=== PATIENT | female | born 1955 | race Caucasian/White ===

== ENCOUNTER 2019-06-27 16:05 | Inpatient (IN) ==
[~2019-06-27 16:05] MED LIST: TICAGRELOR 90 MG TAB PO SCH
[2019-06-27 16:48] LABS: Basophils # (auto) 0.02 K/uL (0-0.2); Basophils % (auto) 0.4 %; Eosinophils # (auto) 0.01 K/uL (0-0.5); Eosinophils % (auto) 0.2 %; Hemoglobin 12.5 g/dL (12.0-16.0); Immature Granulocytes # (auto) 0.01 K/uL (0.00-0.02); Immature Granulocytes % (auto) 0.2 %; Lymphocytes # (auto) 2.71 K/uL (1.2-3.4); Lymphocytes % (auto) 49.2 %; Mean Corpuscular Hgb Conc 32.9 g/dL (32-36); Mean Corpuscular Volume 91.1 fL (80-100); Mean Platelet Volume 9.6 fL (7.4-10.4); Monocytes # (auto) 0.77 K/uL (0.11-0.59); Neutrophils # (auto) 1.99 K/uL (1.4-6.5); Platelet Count 235 K/uL (130-400); RDW Coefficient of Variation 13.5 % (11.5-14.5); RDW Standard Deviation 44.3 fL (36.4-46.3); Red Blood Count 4.17 M/uL (4.2-5.4); White Blood Count 5.51 K/uL (4.8-10.8)
[2019-06-27 16:56] LABS: Albumin Level 3.4 gm/dl (3.4-5.0); BUN Creatinine Ratio 12.5 (10-20); Calcium 9.4 mg/dl (8.5-10.1); Creatinine Clr Calc Pharmacy 84.2 ml/min; Potassium 3.9 mmol/L (3.5-5.1)
[2019-06-27] MEDS ORDERED: ASPIRIN CHEW 324 MG PO STA (17:05)
[2019-06-27 17:06] LABS: Bilirubin,Total 0.1 mg/dl (0.2-1); Creatine Kinase MB 1.4 ng/ml (0.5-3.6); Globulin 3.3 gm/dl (2.5-4.0); Total Protein 6.7 gm/dl (6.4-8.2); Troponin I 0.652 ng/ml (0-0.045)
[2019-06-27] MEDS ORDERED: SODIUM CHLORIDE 0.9% 1000ML 1,000 ML IV ONE (17:06)
[2019-06-27] MEDS ORDERED: NITROGLYCERIN SL 0.4 MG/TAB TAB ONE (17:07)
[2019-06-27] MEDS ORDERED: ASPIRIN CHEW 324 MG ONE (17:07)
[2019-06-27] MEDS: NITROGLYCERIN SL 0.4 MG/TAB TAB SL PRN ×2 (17:09→17:39)
[2019-06-27] MEDS ORDERED: Heparin BOLUS **ED Use Only IV STA (17:15)
[2019-06-27] MEDS ORDERED: Heparin Adult LOW DOSE Wt-Based Dextrose 5% 25,000 units/500 mL IV SCH (17:15)
[2019-06-27] MEDS ORDERED: HEPARIN SODIUM/DEXTROSE 25,000 UNITS/500 ML BAG IV SCH (17:15)
[2019-06-27] MEDS ORDERED: Heparin IV Low Dose WITH Bolus IV ONE (17:15)
--- NOTE | 2019-06-27 17:28 | XRay Report ---
XR chest 1V portable HISTORY: Atypical Chest pain COMPARISON: Chest 09/04/2018. FINDINGS: No pneumothorax. No pleural effusions. The cardiac silhouette is mildly enlarged. No focal lung consolidations to suggest pneumonia. No evidence for pulmonary edema. IMPRESSION: Mild cardiomegaly. Electronically signed by: Florin Ortega M.D. 06/27/2019 5:27 PM
[2019-06-27] MEDS ORDERED: fentaNYL citrate 100 MCG/2 ML VIAL ONE ×2 (17:31→18:50)
[2019-06-27] MEDS ORDERED: HEPARIN (PORCINE) 1000 UNIT/ML 10 ML (CATH LAB USE ONLY) ONE (17:31)
[2019-06-27] MEDS ORDERED: NiCARDipine HCL INJ 2.5 MG/ML 10 ML AMP ONE (17:31)
[2019-06-27] MEDS ORDERED: MIDAZOLAM HCL 1 MG/ML 2ML VIAL ONE ×3 (17:32→18:50)
[2019-06-27] MEDS ORDERED: NITROGLYCERIN/D5W 100MCG/ML 20ML SYR ONE (17:32)
[2019-06-27] MEDS ORDERED: TICAGRELOR 90 MG TAB PO ONE (17:33)
[2019-06-27 18:08] LABS: Albumin Level 3.5 gm/dl (3.4-5.0); BUN Creatinine Ratio 14.2 (10-20); Calcium 9.3 mg/dl (8.5-10.1); Creatinine Clr Calc Pharmacy 88.5 ml/min; Est GFR (African American) 92.3; Est GFR (Non-African American) 79.7; Magnesium 1.9 mg/dl (1.8-2.4); Potassium 4.1 mmol/L (3.5-5.1); Prothrombin Time 9.8 Seconds (9.0-12.0)
[2019-06-27] MEDS ORDERED: ATROPINE SULFATE 0.1 MG/ML 10ML SYR IV ONE (18:10)
[2019-06-27 18:19] LABS: Albumin Globulin Ratio 1.2 (0.9-2); Bilirubin,Total 0.1 mg/dl (0.2-1); Globulin 2.8 gm/dl (2.5-4.0); Thyroid Stimulating Hormone 0.788 uIu/ml (0.300-4.500); Total Protein 6.4 gm/dl (6.4-8.2)
[2019-06-27] MEDS ORDERED: HydrALAZINE HCL 20 MG/ML VIAL ONE ×3 (18:20→19:02)
[2019-06-27] MEDS ORDERED: ONDANSETRON INJ 2 MG/ML 2 ML VIAL ONE (18:40)
[2019-06-27] MEDS ORDERED: EPTIFIBATIDE 2 MG/ML 10 ML VIAL (CATH LAB USE ONLY) ONE (18:47)
--- NOTE | 2019-06-27 19:20 | Cardiology Consultation ---
Date of Consultation June 27, 2019 Assessment & Plan (1) Acute UT: Presentation consistent with acute UT and recommend proceeding with emergent cardiac catheterization and likely primary PCI. No apparent contraindications to procedure. Discussed risks, benefits, alternatives of procedure with patient and they are willing to proceed. Given ticagrelor 180 mg in the ED. Further recommendations pending findings of coronary angiography. History of Present Illness Attending Physician: Jordan Sutherland MD History of Present Illness 63-year-old woman here with acute chest pain and ECG concerning for acute UT. Patient seen emergently in the ED after heart alert activated after second EKG. No prior cardiac history. Cardiac risk factors include obesity, hypertension, dyslipidemia. Other medical issues include GERD, spinal stenosis and osteoarthritis. Chest pain began evening prior to presentation while on a fishing trip in [place]. Initially thought pain was secondary to her GERD but persisted and eventually decided she should drive home. Today he has had pain consistently throughout the day associated with numbness in her left arm and shortness of breath. Pain at its worse this afternoon 6 out of 10. In ED hypertensive and ongoing chest pain, 5 out of 10. Hemodynamically stable and given 1 sibling with nitroglycerin. Initial EKG showed sinus rhythm with subtle ST changes. Troponin positive at 0.65. subsequent EKG almost an hour later showed borderline inferior ST elevations and heart alert activated. Allergies Allergy/AdvReac Type Severity Reaction Status Date / Time shrimp Allergy Intermediate fever,n/v,s Verified 09/18/18 11:59 weating Home Medications Home Medications Medication Instructions Recorded Confirmed Type citalopram 20 mg PO QAM 09/01/18 09/18/18 History levocetirizine [Xyzal] 5 mg PO HS PRN 09/01/18 09/18/18 History lisinopril 20 mg PO QAM 09/01/18 09/18/18 History multivitamin 1 tab PO QAM 09/01/18 09/18/18 History pantoprazole 40 mg PO QAM 09/01/18 09/18/18 History oxycodone 5 mg PO Q4H PRN #30 tab 09/20/18 Rx tramadol 50 mg PO Q4H PRN #30 tab 09/20/18 Rx aspirin [Ecotrin Low Strength] 81 mg PO QAM 30 Days #30 tab 06/28/19 Rx metoprolol tartrate 25 mg PO BID 30 Days #60 tab 06/28/19 Rx nitroglycerin [Nitrostat] 0.4 mg SUBLINGUAL PRN PRN #30 tab 06/28/19 Rx ticagrelor [Brilinta] 90 mg PO BID 30 Days #60 tab 06/28/19 Rx atorvastatin 80 mg PO DAILY #30 tab 06/29/19 Rx Patient History Medical History Morbid obesity (Chronic) HLD (hyperlipidemia) (Chronic) Hypertension (Chronic) GERD (gastroesophageal reflux disease) (Chronic) Osteoarthritis (Chronic) Degenerative disc disease (Chronic) Surgical History History of tonsillectomy (Chronic) History of colonoscopy (Chronic) History of back surgery (Chronic) Lumbar discectomy 09/18/18 Lumbar decompression and fusion at [facility] by Dr Burnham History of total knee replacement (Chronic) RT History of hysterectomy (Chronic) History of arthroscopy (Chronic) left KNEE Family History Father Family history of diabetes mellitus Social History Preferred Language: Mosotho Communication Ability: Effective 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 25 pack year hx ; Second Hand Exposure: No ; Hx Alcohol Use: No Hx Substance Use: No Review of Systems Review of Systems: Not obtained in the setting of emergent situation Physical Exam Physical Exam: General: Uncomfortable, no acute distress, obese HEENT: Sclerae anicteric, mucous membranes moist Lungs: Clear to auscultation bilaterally, no rhonchi or wheezes Cardiac: Regular rate and rhythm, no murmurs. Abdomen: Soft, nontender Extremities: Warm, well perfused, no edema. 2+ radial pulses Skin: No rashes or lesions. Neuro: Nonfocal Psych: Alert orient x3, normal affect and mood Results & Data Vital Signs (Past 12 Hours) Vital Signs Temp Pulse Resp BP Pulse Ox 06/27/19 17:40 59 L 20 201/110 H 95 06/27/19 17:30 59 L 20 201/110 H 95 06/27/19 17:17 62 22 183/86 H 94 06/27/19 17:13 65 18 172/107 H 94 06/27/19 17:00 59 L 20 95 06/27/19 16:09 98.1 F 66 18 160/103 H 98 PG Care Time/CCT Total # of Minutes Spent Total Time Spent with Patient: Total time spent is greater than 50% in coordination of care (as documented) at patient's floor/unit and/or counseling patient:
--- NOTE | 2019-06-27 19:21 | Pre Anesthesia Assessment ---
Date of Service June 27, 2019 Pre Sedation Assessment Vital Signs Temp Pulse Resp BP Pulse Ox 06/27/19 17:40 59 L 20 201/110 H 95 06/27/19 17:30 59 L 20 201/110 H 95 06/27/19 17:17 62 22 183/86 H 94 06/27/19 17:13 65 18 172/107 H 94 06/27/19 17:00 59 L 20 95 06/27/19 16:09 98.1 F 66 18 160/103 H 98 Cardiovascular RRR, no murmur, no edema Respiratory normal respiratory effort, lungs clear to auscultation Pre-Sedation Airway Assessment Smoking Status: Former smoker Hx Sleep Apnea: No Hx Difficult Intubation: No Short, Thick Neck: No Thyromental Distance: > or= 3.5 Finger Breadths Oral Cavity: + WNL Mallampati Class: III Procedure Planning Contraindications for Sedation: none Current Medications Reviewed: Yes Notes The planned sedation has been discussed with the patient. Informed Consent was obtained. I have identified the patient, determined the appropriateness of sedation and have assessed the patient immediately prior to the procedure. All medicine(s) and interventions are by my order.
--- NOTE | 2019-06-27 19:21 | Post Anesthesia Assessment ---
Date of Service June 27, 2019 Post Sedation Assessment Vital Signs Temp Pulse Resp BP Pulse Ox 06/27/19 17:40 59 L 20 201/110 H 95 06/27/19 17:30 59 L 20 201/110 H 95 06/27/19 17:17 62 22 183/86 H 94 06/27/19 17:13 65 18 172/107 H 94 06/27/19 17:00 59 L 20 95 06/27/19 16:09 98.1 F 66 18 160/103 H 98 Recovery Score Activity: Moves 4 extremities Respiration: Deep Breath/Cough Circulation: +/-20% PreAnes Value Consciousness: Fully Awake Oxygen Saturation: O2 needed for >90% Discharge Sedation Level of Care: Fast Track Phase II Post Sedation Plan On clinical assessment, the patient appears to have tolerated the sedation without complications. Patient is recovering as anticipated. Patient will continue to be monitored by nursing and may be discharged when sedation discharge criteria are met per below protocol. Upon Completions of procedure and additional 15 minutes continue every 5 minute vital signs and the P.A.R. score; then discharge to a Phase I or Fast Track to Phase II per the following guidelines: * Discharge Patient to appropriate Phase II area if PAR is 8 or greater or return to pre- procedure baseline. The post - procedure orders will be as di rected. * If PAR score is less than 8 or not return to pre-procedure baseline then patient will follow Phase I monitoring till PAR is reached for Phase II. The Phase I may be done in procedure room or may call to secure a Phase I area. * If naloxone or flumazenil are used for reversal, hold in Phase I for continued monitoring from when last reversal dose was given for a minimum of 60 minutes or longer pending the nurse and/or physician discretion of patient condition before discharge to Phase II. Please call the Sedation Physician to re-evaluate and complete post-note for discharge to Phase II area. Do NOT discharge from procedure sedation or Phase 1 until post- sedation evaluation note is complete by procedure /sedation MD Sedation Discharge Instructions to be given to the patient at discharge to home.
--- NOTE | 2019-06-27 19:37 | Cardiac Catheterization ---
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 Cardiac Status Clinical evaluation leading to the procedure CAD Presenation: STEMI Anginal Classification: CCS IV Heart Failure: No Cardiogenic Shock within 24 Hours: No Cardiac Arrest within 24 Hours: No Imaging Studies Past 6 Months: No Stress Studies Past 6 Months: No Diagnostic Physicians Name: Jordan Sutherland MD Status: Elective Closure Device Percutaneous Entry Location: Radial Closure Device: Radial Band Recommendations: PCI without planned CABG PCI Indication: PCI for STEMI - Stable First Noted: Subsequent EKG Lesion Segment Name: PDA Culprit Artery: Yes Stenosis Prior to Rx (%): 100 Chronic Total Occlusion: No IVUS: No FFR: No Pre-Procedure ADAM Flow: 0 Previously Treated Lesion: No Lesion Complexity: High/C Lesion Length (mm): 20 Thrombus Present: Yes Bifurcation Lesion: Yes Guidewire Across Lesion: Stenosis Post-Procedure (%): 0 Post-Procedure ADAM Flow: 3 Devices(s) Deployed: Yes Yes Intraprocedure Events Significant Disection: No Perforation: No Cardiac Cath Procedure Full Procedure Date June 27, 2019 Pre-Procedure Diagnosis Pre-Procedure Diagnosis: STEMI AUC Score AUC Score: 9 Post-Procedure Diagnosis Post-Procedure Diagnosis: Severe CAD and Successful PCI Procedure(s) Performed Procedure(s) Performed: Coronary Angiography, Left Heart Cath and Drug Eluting Stent Pumper Gauger Jordan Sutherland MD Php Mysql Web Developer(s) Antolin Estimated Blood Loss Estimated Blood Loss: 15 Medication(s) Medication(s): Clopidogrel, Fentanyl, Heparin, Lidocaine 1%, Nicardipine, Nitroglycerin and Versed Summary of Findings Indication: Acute RI Access: 6 Fr right radial artery Catheters: Russell, JR4 guide Findings: LM -Short, moderate caliber LAD -moderate caliber vessel, proximal luminal irregularities, 20 to 30% mid segment disease, distal luminal irregularities. Moderate caliber bifurcating second diagonal without significant disease. LAD provides left to right collaterals to right PDA. Circumflex -small caliber vessel, 60 to 70% distal disease prior to small left OM 2 RCA -large caliber vessel, dominant, proximal luminal irregularities, 30% mid segment disease. 100% acute on chronic ostial right PDA. Large right PLB with luminal irregularities LVEDP -27 -- PCI -- Antithrombotic therapy: Heparin, ticagrelor, IC Integrilin Procedure: RCA cannulated with JR4 guide Multiple attempts to cross ostial PDA occlusion. Occlusion hard, consistent with organized clot. Unable to cross with towing pilot 50, cougar. Eventually able to cross with Long whisper wire with the aid of 2.0 OTW balloon. Contrast injection through OTW balloon confirmed intraluminal position. Ostial RCA lesion predilated with 2.0 compliant balloon Dilated lesion stented with 2.5 x 22 mm Sandy drug-eluting stent Stent post-dilated with stent balloon IC vasodilators administered for spasm, slow distal reflow. Gentle inflation with 2.0 balloon to distal PDA and IC Integrilin administered. Post procedure ADAM 3 flow, stent well expanded with minimal residual stenosis and no apparent cardiac complications. Arterial Closure: TR band Summary: 1. Acute on chronic 100% ostial PDA occlusion with [id number] collaterals from LAD 2. Moderate to severe single-vessel non-culprit coronary artery disease -60 to 70% stenosis in distal small circumflex 3. Elevated intracardiac filling pressure 4. Successful PCI of ostial RCA with single drug-eluting stent (2.5 x 22 mm Emiliano). Recommendations: To PCU for continued monitoring Trend troponin until peak, echocardiogram in a.m. Improved blood pressure control, titrate beta-brandin, NIKITA inhibitor Continue dual-antiplatelet therapy for at least one year Continue statin, and ASCVD risk factor modification Consult cardiac Rehab Hemodynamics Rest Ao:: 177/107/134 Final Ao: 216/72/160 LV: 172/27 Recommendations Recommendations: PCI without planned CABG Specimens Specimens: None Radiation Exposure (mGy) 4882 Contrast (mls) 175 Fluids (cc crystalloids) Fluids (cc crystalloids): 133 Drains Drains: None Anesthesia Moderate Procedural Complication(s) None Disposition PCU I attest to the content of the Intraoperative Record and any orders documented therein. Any exceptions are noted below.
[2019-06-27] MEDS ORDERED: ACETAMINOPHEN 325 MG TAB PO PRN (19:42)
[2019-06-27] MEDS ORDERED: ONDANSETRON INJ 2 MG/ML 2 ML VIAL IV PRN (19:42)
[2019-06-27] MEDS ORDERED: SODIUM CHLORIDE 0.9% 1000ML 1,000 ML IV SCH (19:45)
[2019-06-27] MEDS ORDERED: INFLUENZA ADMINISTRATION CHARGE ONE (20:30)
[2019-06-27] MEDS ORDERED: INFLUENZA VIRUS QUAD VACCINE 0.5 ML SYR IM ONE (20:30)
--- NOTE | 2019-06-27 20:33 | History & Physical Report ---
Date of Service June 27, 2019 Assessment & Plan (1) ST elevation myocardial infarction (STEMI): Multivessel CAD on cardiac cath sp PCI hypertension, stable hyperlipidemia on statin Rx GERD on PPI regimen ongoing tobacco abuse, patient resolved to quit once and for all PCU Management of cardiac issues as per bleach analyst. DVT prophylaxis with Lovenox subcu Full code History of Present Illness Primary Care Provider: Marleen Parker PA-C History obtained from patient and records. Medical history significant for hypertension, hyperlipidemia, GERD, ongoing t obacco abuse, skin cancer as per records. Recent confinement September 2018 under Orthopedics service for lumbar decompression surgery. 1 week history of intermittent chest discomfort reflux-like with occasional radiation to the left arm shortness of breath. Patient seen at PCP's office. Augmentin prescription given for frontal sinusitis. Home PPI doubled in dose. Overnight she had worsening and more persistent chest discomfort symptoms. At the ER, Heart alert called. Subsequent PCI of postural RCA lesion with SHERMAN done at the cathode builder. Patient currently at MICU room complaining of post cath right wrist pain. Medical History as above Surgical History : By C, hysterectomy, back surgery, oophorectomy Family History : Diabetes, heart disease, hypertension Personal/Social history : Half pack daily, occasional EtOH intake, retired from [employer] work Allergies Allergy/AdvReac Type Severity Reaction Status Date / Time shrimp Allergy Intermediate fever,n/v,s Verified 09/18/18 11:59 weating Home Medications Home Medications Medication Instructions Recorded Confirmed Type citalopram 20 mg PO QAM 09/01/18 09/18/18 History levocetirizine [Xyzal] 5 mg PO HS PRN 09/01/18 09/18/18 History lisinopril 20 mg PO QAM 09/01/18 09/18/18 History multivitamin 1 tab PO QAM 09/01/18 09/18/18 History pantoprazole 40 mg PO QAM 09/01/18 09/18/18 History oxycodone 5 mg PO Q4H PRN #30 tab 09/20/18 Rx tramadol 50 mg PO Q4H PRN #30 tab 09/20/18 Rx Past Med/Surg History Medical History Morbid obesity (Chronic) HLD (hyperlipidemia) (Chronic) Hypertension (Chronic) GERD (gastroesophageal reflux disease) (Chronic) Osteoarthritis (Chronic) Degenerative disc disease (Chronic) Surgical History History of tonsillectomy (Chronic) History of colonoscopy (Chronic) History of back surgery (Chronic) Lumbar discectomy 09/18/18 Lumbar decompression and fusion at [facility] by Dr Burnham History of total knee replacement (Chronic) RT History of hysterectomy (Chronic) History of arthroscopy (Chronic) left KNEE Family History Father Family history of diabetes mellitus Social History Preferred Language: Kazakh Communication Ability: Effective Transmission Tester Required: No Beliefs That Will Affect Care: None marital status: Current Living Situation: Spouse Other Information That Helps Us Care for You: No Feels Safe at Home: Yes Safety Concerns: Feels Safe At This Time Smoking Status: Former smoker Tobacco Type: cigarettes ; Cigarettes Per Day: 1/2 PPD, cutting back. 25 pack year hx ; Second Hand Exposure: No ; Hx Alcohol Use: No Hx Substance Use: No Review of Systems Review of Systems: As per HPI, all 10 systems reviewed, all other ROS negative Physical Exam Physical Exam: GENERAL: Slightly uncomfortable, pleasant, obese, no respiratory distress, eating dinner SKIN: Normal color, warm HEENT: Bespectacled, pink palpebral conjunctivae, no ptosis, dry buccal mucosa NECK : Supple, short neck, no tenderness CHEST : CTA, no tenderness HEART : RRR, no obvious murmurs ABDOMEN: distention, nontender EXTREMITIES : Minimal LE swelling, no LE tenderness, no other conspicuous deformities noted NEUROLOGIC : Coherent, no facial asymmetry, no other gross focality Results & Data Vital Signs (Past 12 Hours) Vital Signs Temp Pulse Pulse Resp BP BP Pulse Ox 06/27/19 20:16 79 20 146/91 H 98 06/27/19 20:14 71 06/27/19 20:10 74 19 06/27/19 20:00 74 16 145/67 H 98 06/27/19 19:50 69 22 98 06/27/19 19:47 65 20 156/73 H 99 06/27/19 19:43 36.6 C 67 17 98 06/27/19 19:20 36.6 C 68 18 142/93 H 99 06/27/19 17:40 59 L 20 201/110 H 95 06/27/19 17:30 59 L 20 201/110 H 95 06/27/19 17:17 62 22 183/86 H 94 06/27/19 17:13 65 18 172/107 H 94 06/27/19 17:00 59 L 20 95 06/27/19 16:09 36.7 C 66 18 160/103 H 98 Laboratory Results Laboratory Results WBC 5.51 K/uL (4.8-10.8) 06/27/19 16:20 RBC 4.17 M/uL (4.2-5.4) L 06/27/19 16:20 Hgb 12.5 g/dL (12.0-16.0) 06/27/19 16:20 Hct 38.0 % (37-47) 06/27/19 16:20 MCV 91.1 fL (80-100) 06/27/19 16:20 MCH 30.0 pg (25-34) 06/27/19 16:20 MCHC 32.9 g/dL (32-36) 06/27/19 16:20 RDW Std Deviation 44.3 fL (36.4-46.3) 06/27/19 16:20 RDW Coeff of Magan 13.5 % (11.5-14.5) 06/27/19 16:20 Plt Count 235 K/uL (130-400) 06/27/19 16:20 MPV 9.6 fL (7.4-10.4) 06/27/19 16:20 Immature Gran % (Auto) 0.2 % 06/27/19 16:20 Neut % (Auto) 36.0 % 06/27/19 16:20 Lymph % (Auto) 49.2 % 06/27/19 16:20 Wilkes % (Auto) 14.0 % 06/27/19 16:20 Eos % (Auto) 0.2 % 06/27/19 16:20 Baso % (Auto) 0.4 % 06/27/19 16:20 Immature Gran # (Auto) 0.01 K/uL (0.00-0.02) 06/27/19 16:20 Neut # (Auto) 1.99 K/uL (1.4-6.5) 06/27/19 16:20 Lymph # (Auto) 2.71 K/uL (1.2-3.4) 06/27/19 16:20 Wilkes # (Auto) 0.77 K/uL (0.11-0.59) H 06/27/19 16:20 Eos # (Auto) 0.01 K/uL (0-0.5) 06/27/19 16:20 Baso # (Auto) 0.02 K/uL (0-0.2) 06/27/19 16:20 PT 9.8 Seconds (9.0-12.0) 06/27/19 16:20 INR 1.0 (0.9-1.1) 06/27/19 16:20 Activ Coag Time Kaolin 252 SECONDS (94-140) H 06/27/19 18:43 Sodium 144 mmol/L (136-145) 06/27/19 16:20 Sodium 144 mmol/L (136-145) 06/27/19 16:20 Potassium 3.9 mmol/L (3.5-5.1) 06/27/19 16:20 Potassium 4.1 mmol/L (3.5-5.1) 06/27/19 16:20 Chloride 110 mmol/L (98-107) H 06/27/19 16:20 Chloride 110 mmol/L (98-107) H 06/27/19 16:20 Carbon Dioxide 28 mmol/L (21-32) 06/27/19 16:20 Carbon Dioxide 28 mmol/L (21-32) 06/27/19 16:20 Anion Gap 6.0 (3-11) 06/27/19 16:20 Anion Gap 6.0 (3-11) 06/27/19 16:20 BUN 10 mg/dl (7-18) 06/27/19 16:20 BUN 11 mg/dl (7-18) 06/27/19 16:20 Creatinine 0.79 mg/dl (0.6-1.2) 06/27/19 16:20 Creatinine 0.83 mg/dl (0.6-1.2) 06/27/19 16:20 Est Cr Clr Drug Dosing 84.2 ml/min 06/27/19 16:20 Est Cr Clr Drug Dosing 88.5 ml/min 06/27/19 16:20 Est GFR ( Amer) 87.0 06/27/19 16:20 Est GFR ( Amer) 92.3 06/27/19 16:20 Est GFR (Non-Af Amer) 75.0 06/27/19 16:20 Est GFR (Non-Af Amer) 79.7 06/27/19 16:20 BUN/Creatinine Ratio 12.5 (10-20) 06/27/19 16:20 BUN/Creatinine Ratio 14.2 (10-20) 06/27/19 16:20 Glucose 90 mg/dl (70-99) 06/27/19 16:20 Glucose 93 mg/dl (70-99) 06/27/19 16:20 Calcium 9.3 mg/dl (8.5-10.1) 06/27/19 16:20 Calcium 9.4 mg/dl (8.5-10.1) 06/27/19 16:20 Magnesium 1.9 mg/dl (1.8-2.4) 06/27/19 16:20 Total Bilirubin 0.1 mg/dl (0.2-1) L 06/27/19 16:20 Total Bilirubin 0.1 mg/dl (0.2-1) L 06/27/19 16:20 AST 20 U/L (15-37) 06/27/19 16:20 AST 22 U/L (15-37) 06/27/19 16:20 ALT 29 U/L (12-78) 06/27/19 16:20 ALT 31 U/L (12-78) 06/27/19 16:20 Alkaline Phosphatase 114 U/L (45-117) 06/27/19 16:20 Alkaline Phosphatase 115 U/L (45-117) 06/27/19 16:20 Total Creatine Kinase 70 U/L (26-192) 06/27/19 16:20 Total Creatine Kinase 74 U/L (26-192) 06/27/19 16:20 CK-MB (CK-2) 1.4 ng/ml (0.5-3.6) 06/27/19 16:20 CK/CKMB % Calc 2.0 (0-3.0) 06/27/19 16:20 POC Troponin I 0.69 ng/ml (0-0.045) H 06/27/19 16:28 Troponin I 0.652 ng/ml (0-0.045) H* 06/27/19 16:20 Total Protein 6.4 gm/dl (6.4-8.2) 06/27/19 16:20 Total Protein 6.7 gm/dl (6.4-8.2) 06/27/19 16:20 Albumin 3.4 gm/dl (3.4-5.0) 06/27/19 16:20 Albumin 3.5 gm/dl (3.4-5.0) 06/27/19 16:20 Globulin 2.8 gm/dl (2.5-4.0) 06/27/19 16:20 Globulin 3.3 gm/dl (2.5-4.0) 06/27/19 16:20 Albumin/Globulin Ratio 1.0 (0.9-2) 06/27/19 16:20 Albumin/Globulin Ratio 1.2 (0.9-2) 06/27/19 16:20 Lipase 83 U/L (73-393) 06/27/19 16:20 TSH 0.788 uIu/ml (0.300-4.500) 06/27/19 16:20 Diagnostic Findings Chest x-ray : Mild cardiomegaly EKG as per my interpretation : Rate 70, LAD, LAFB, NSR, J-point elevation inferior leads Code Status & VTE Plan VTE Prophylaxis Plan VTE Prophylaxis will be ordered: Yes (1) ST elevation myocardial infarction (STEMI) Involved coronary artery: unspecified coronary artery Qualified Code(s): I21.3 - ST elevation (STEMI) myocardial infarction of unspecified site
[2019-06-27] MEDS ORDERED: PROMETHAZINE HCL 12.5 MG in SODIUM CHLORIDE 0.9% 50 ML IV PRN (20:34)
[2019-06-27] MEDS ORDERED: ACETAMINOPHEN 325 MG TAB PO STA (20:34)
[2019-06-27] MEDS ORDERED: TRAMADOL HCL 50 MG TABLET PO PRN (20:34)
[2019-06-27] MEDS ORDERED: MoRPHine SULFATE 4 MG/ML 1 ML CARP\\VIAL IV PRN (20:35)
[2019-06-27] MEDS: METOPROLOL TARTRATE 25 MG TAB PO SCH (21:09)
[2019-06-27] MEDS: lisinopriL 5 MG TAB PO SCH (21:10)
[2019-06-27 21:45] LABS: Appearance Urine Clear (Clear); Bilirubin Urine Negative (Negative); Blood Urine Negative (Negative); Color Urine Yellow; Glucose Urine UA Negative (Negative); Ketones Urine Negative (Negative); Leukocyte Esterase Urine Negative (Negative); Nitrite Urine Negative (Negative); Protein Urine Negative (Negative); Urobilinogen Urine Negative (Negative)
--- NOTE | 2019-06-28 00:19 | Emergency Department Note ---
Entered by Yenny Rosa acting as a scribe for Jose Brandon History of Present Illness General Chief complaint: Chest Pain Stated complaint: CHEST PAIN Time Seen by Provider: 06/27/19 17:01 Source: patient History of Present Illness Provider complaint: Cest Pain Onset (ago): week(s) 1 Location: chest Radiation: extremity (Left arm) Maximum Pain Intensity: 6 Current Pain Intensity: 5 Quality: + sharp (Intermittent) and + dull (Pressure) Associated symptoms: + denies other symptoms (Coughing up blood) and + shortness of breath The patient is a 63 year old female who presents to the Emergency Room with complaints of chest pain that started last Tuesday. The patient describes the pain as a dull pressure and pain. The patient states that the pain radiates down her left arm and that it is a 5/10 in severity. The patient reports experiencing shortness of breath but denies coughing up any blood. The patient mentioned that she traveled to [place] recently and is taking Amoxicillin for an ear infection. Additionally, the patient denies taking aspirin or hormone pills or having any history of kidney or heart problems. Home Medications Home Medications Medication Instructions Recorded Confirmed Type citalopram 20 mg PO QAM 09/01/18 09/18/18 History levocetirizine [Xyzal] 5 mg PO HS PRN 09/01/18 09/18/18 History lisinopril 20 mg PO QAM 09/01/18 09/18/18 History multivitamin 1 tab PO QAM 09/01/18 09/18/18 History pantoprazole 40 mg PO QAM 09/01/18 09/18/18 History oxycodone 5 mg PO Q4H PRN #30 tab 09/20/18 Rx tramadol 50 mg PO Q4H PRN #30 tab 09/20/18 Rx Allergies Allergy/AdvReac Type Severity Reaction Status Date / Time shrimp Allergy Intermediate fever,n/v,s Verified 09/18/18 11:59 weating Past Med/Surg History Medical History Morbid obesity (Chronic) HLD (hyperlipidemia) (Chronic) Hypertension (Chronic) GERD (gastroesophageal reflux disease) (Chronic) Osteoarthritis (Chronic) Degenerative disc disease (Chronic) Surgical History History of tonsillectomy (Chronic) History of colonoscopy (Chronic) History of back surgery (Chronic) Lumbar discectomy 09/18/18 Lumbar decompression and fusion at [facility] by Dr Burnham History of total knee replacement (Chronic) RT History of hysterectomy (Chronic) History of arthroscopy (Chronic) left KNEE Family History Father Family history of diabetes mellitus Social History Preferred Language: Portuguese Communication Ability: Effective Track Oiler Required: No Beliefs That Will Affect Care: None marital status: Current Living Situation: Spouse Other Information That Helps Us Care for You: No Feels Safe at Home: Yes Safety Concerns: Feels Safe At This Time Smoking Status: Former smoker Tobacco Type: cigarettes ; Cigarettes Per Day: 1/2 PPD, cutting back. 25 pack year hx ; Second Hand Exposure: No ; Hx Alcohol Use: No Hx Substance Use: No Review of Systems See HPI for pertinent positives & negatives. and A total of 10 systems reviewed and were otherwise negative Physical Exam Vital Signs Vital Signs - 24 hr 06/27/19 16:09 06/27/19 17:00 06/27/19 17:13 Temperature 36.7 C Temperature Source Oral Sepsis Recent Fever Within 48 Hours No Sepsis New/Unexplained Change in Mental Status No Sepsis Action Taken by Nursing No Action Required Pulse Rate 66 59 L 65 Pulse Rate [Apical] Pulse Rate from SpO2 Sensor 65 Pulse Rhythm Regular Respiratory Rate 18 20 18 Respiratory Effort / Characteristics Non-Labored Respiratory Depth Normal Blood Pressure 160/103 H 172/107 H Blood Pressure [Left Arm] Blood Pressure Mean 122 128 Blood Pressure Mean [Left Arm] Blood Pressure Position Sitting Pulse Oximetry 98 95 94 Oxygen Delivery Method Room Air Room Air Room Air 06/27/19 17:17 06/27/19 17:30 06/27/19 17:40 Temperature Temperature Source Sepsis Recent Fever Within 48 Hours Sepsis New/Unexplained Change in Mental Status Sepsis Action Taken by Nursing Pulse Rate 62 59 L 59 L Pulse Rate [Apical] Pulse Rate from SpO2 Sensor Pulse Rhythm Respiratory Rate 22 20 20 Respiratory Effort / Characteristics Respiratory Depth Blood Pressure 183/86 H 201/110 H 201/110 H Blood Pressure [Left Arm] Blood Pressure Mean 118 140 Blood Pressure Mean [Left Arm] Blood Pressure Position Pulse Oximetry 94 95 95 Oxygen Delivery Method Room Air Room Air Room Air 06/27/19 19:20 06/27/19 19:43 Temperature 36.6 C 36.6 C Temperature Source Oral Sepsis Recent Fever Within 48 Hours Sepsis New/Unexplained Change in Mental Status Sepsis Action Taken by Nursing Pulse Rate 67 Pulse Rate [Apical] 68 Pulse Rate from SpO2 Sensor 69 Pulse Rhythm Respiratory Rate 18 17 Respiratory Effort / Characteristics Respiratory Depth Blood Pressure Blood Pressure [Left Arm] 142/93 H Blood Pressure Mean Blood Pressure Mean [Left Arm] 109 Blood Pressure Position Pulse Oximetry 99 98 Oxygen Delivery Method Room Air GENERAL: She appears distressed. HENT: Exam performed. Head: Normocephalic and atraumatic. Right Ear: External ear normal. No mastoid tenderness. Left Ear: External ear normal. No mastoid tenderness. Mouth/Throat: The oropharynx is clear and moist. No trismus in the jaw. No dental abscesses or uvula swelling. No oropharyngeal exudate or tonsillar abscesses. EYES: Conjunctivae and EOM are normal. Pupils are equal, round, and reactive to light. Right eye exhibits no discharge. Left eye exhibits no discharge. No scleral icterus. NECK: Normal range of motion. Neck supple. No JVD present. No spinous process tenderness present. No carotid bruit present. No rigidity. No tracheal deviation and normal range of motion present. No Brudzinski's sign and no Kernig's sign noted. CV: Normal rate, regular rhythm, normal heart sounds and intact distal pulses. There is no peripheral edema. Palpable radial pulses bue. PULM/CHEST: Effort normal and breath sounds normal. No respiratory distress. No stridor. She has no wheezes. She has no rales. Chest Wall: She exhibits no tenderness. ABD: The abdomen is soft. Bowel sounds are normal. She has no distension. No mass is present. There is no tenderness. There is no rebound, no guarding, no Hedrick's sign and no tenderness at McBurney's point. Rovsig negative MUSC/SKEL: Normal range of motion. There is no peripheral edema, tenderness or deformity. LYMPH: No cervical adenopathy. NEURO: She is alert and oriented to person, place, and time. She has normal strength. No cranial nerve deficit or sensory deficit. Coordination and gait normal. GCS eye subscore is 4. GCS verbal subscore is 5. GCS motor subscore is 6. cerbellar tests wnl. SKIN: Skin is warm and dry. She is not diaphoretic. Course 1702: Nursing staff brought me the patient's EKG. There was a significant wait in the ED due to a time of high acuity and high volume in the ED. The patient was triaged and cardiac protocols were started. POC troponin was elevated at 0.69 and we went to see the patient. 1703: Past medical records reviewed. The patient was evaluated in room A12B. A complete history and physical exam was performed. 1706: EKG was performed. NSR 60. IL, QRS, and QTC were normal. Mild ST elevation in leads II and III. AVF in V4-V6. 1715: Second EKG was performed. NSR 61. IL, QRS, and QTC were within normal limits. Worsening ST elevation in leads II and III. AVF V4-V6. Concern for STEMI. Will discuss with cardiology, 1722: I spoke with Dr. Sutherland about the patient's case. We went over the patient's EKG and called a heart alert. Third EKG was performed. NSR 64. IL, QRS, and QTC were within normal limits. Worsening ST elevation in leads II and III. AVF. Aspirin, sublingual nitro, and started on a liter of fluid. Cardiac pads were placed on the patient. 1730: Dr. Sutherland is at bedside with patient and taking the patient to the laboratory aide. Administered Medications Sodium Chloride (Nss 1000ml) 1,000 mls @ 75 mls/hr IV .[id number] [facility] Stop: 06/28/19 02:24 Last Admin: 06/27/19 19:30 Dose: 75 mls/hr Documented by: [id number] Lisinopril (Zestril) 5 mg PO BID JOHNNY Stop: 07/27/19 20:59 Last Admin: 06/27/19 21:10 Dose: 5 mg Documented by: [id number] Metoprolol Tartrate (Lopressor) 25 mg PO BID JOHNNY Stop: 07/27/19 20:59 Last Admin: 06/27/19 21:09 Dose: 25 mg Documented by: [id number] Nitroglycerin (Nitrostat) 0.4 mg SL PRN PRN PRN Reason: Chest Pain Stop: 07/27/19 17:04 Last Admin: 06/27/19 17:39 Dose: 0.4 mg Documented by: [id number] Admin: 06/27/19 17:09 Dose: 0.4 mg Documented by: [id number] Discontinued Medications Acetaminophen (Tylenol) 650 mg PO NOW STA Stop: 06/27/19 20:35 Last Admin: 06/27/19 21:09 Dose: 650 mg Documented by: [id number] Aspirin (Aspirin) 324 mg PO NOW STA Stop: 06/27/19 17:06 Last Admin: 06/27/19 17:09 Dose: 324 mg Documented by: [id number] Aspirin (Aspirin) Confirm Administered Dose 324 mg .ROUTE .STK-MED ONE Stop: 06/27/19 17:08 Last Admin: 06/27/19 17:13 Dose: Not Given Documented by: [id number] Atropine Sulfate (Atropine Sulfate) Confirm Administered Dose 1 mg IV .STK-MED ONE Stop: 06/27/19 18:11 Last Admin: 06/27/19 19:13 Dose: Not Given Documented by: [id number] Eptifibatide (Integrilin (Sandfill Operator Use Only)) Confirm Administered Dose 20 mg .ROUTE .STK-MED ONE Stop: 06/27/19 18:48 Last Admin: 06/27/19 19:16 Dose: 20.4 mg Documented by: [id number] Fentanyl Citrate (Fentanyl Citrate) Confirm Administered Dose 100 mcg .ROUTE .STK-MED ONE Stop: 06/27/19 17:32 Last Admin: 06/27/19 19:12 Dose: 100 mcg Documented by: [id number] Fentanyl Citrate (Fentanyl Citrate) Confirm Administered Dose 100 mcg .ROUTE .STK-MED ONE Stop: 06/27/19 18:51 Last Increment: 06/27/19 19:14 Dose: 25 mcg Documented by: [id number] Heparin Sodium (Porcine) (Heparin Iv Bolus) 4,000 units IV NOW STA Stop: 06/27/19 17:16 Last Admin: 06/27/19 19:11 Dose: Not Given Documented by: [id number] Heparin Sodium (Porcine) (Heparin Iv Bolus (Sandfill Operator Use Only)) Confirm Ad ministered Dose 10,000 units .ROUTE .STK-MED ONE Stop: 06/27/19 17:32 Last Admin: 06/27/19 19:13 Dose: 10,000 units Documented by: [id number] Heparin Sodium/Dextrose () 1 ea IV NOW ONE Stop: 06/27/19 17:16 Last Admin: 06/27/19 19:11 Dose: Not Given Documented by: [id number] Heparin Sodium/Sodium Chloride (Heparin/Nss 1000 Unit/500ml Flush Bag) Confirm Administered Dose 3,000 units IV .STK-MED ONE Stop: 06/27/19 17:33 Last Admin: 06/27/19 17:51 Dose: 3,000 units Documented by: [id number] Hydralazine HCl (Hydralazine Hcl) Confirm Administered Dose 20 mg .ROUTE .STK- MED ONE Stop: 06/27/19 18:21 Last Admin: 06/27/19 19:13 Dose: 20 mg Documented by: Hydralazine HCl (Hydralazine Hcl) Confirm Administered Dose 20 mg .ROUTE .STK- MED ONE Stop: 06/27/19 18:22 Last Increment: 06/27/19 19:14 Dose: 10 mg Documented by: Hydralazine HCl (Hydralazine Hcl) Confirm Administered Dose 20 mg .ROUTE .STK- MED ONE Stop: 06/27/19 19:03 Last Increment: 06/27/19 19:15 Dose: 10 mg Documented by: Sodium Chloride (Nss 1000ml) 1,000 mls @ 999 mls/hr IV .Q1H1M ONE Stop: 06/27/19 18:06 Last Infusion: 06/27/19 18:13 Dose: 0 mls/hr Documented by: [id number] Admin: 06/27/19 17:12 Dose: 999 mls/hr Documented by: [id number] Heparin Sodium/Dextrose (Heparin Sodium/Dextrose) 25,000 units in 500 mls @ 18 mls/hr IV .Q24H JOHNNY; Protocol Stop: 07/27/19 17:14 Last Admin: 06/27/19 19:11 Dose: Not Given Documented by: Midazolam HCl (Versed) Confirm Administered Dose 2 mg .ROUTE .STK-MED ONE Stop: 06/27/19 17:33 Last Admin: 06/27/19 19:13 Dose: 2 mg Documented by: Midazolam HCl (Versed) Confirm Administered Dose 2 mg .ROUTE .STK-MED ONE Stop: 06/27/19 18:41 Last Admin: 06/27/19 19:14 Dose: 2 mg Documented by: [id number] Midazolam HCl (Versed) Confirm Administered Dose 2 mg .ROUTE .STK-MED ONE Stop: 06/27/19 18:51 Last Admin: 06/27/19 19:15 Dose: Not Given Documented by: [id number] Nicardipine HCl (Cardene) Confirm Administered Dose 25 mg .ROUTE .STK-MED ONE Stop: 06/27/19 17:32 Last Admin: 06/27/19 17:51 Dose: 25 mg Documented by: [id number] Nitroglycerin (Nitrostat) Confirm Administered Dose 0.4 mg .ROUTE .STK-MED ONE Stop: 06/27/19 17:08 Last Admin: 06/27/19 17:14 Dose: Not Given Documented by: [id number] Nitroglycerin/Dextrose (Nitroglycerin/D5w 100 Mcg/Ml 20ml Syringe) Confirm Administered Dose 2,000 mcg .ROUTE .STK-MED ONE Stop: 06/27/19 17:33 Last Admin: 06/27/19 17:51 Dose: 2,000 mcg Documented by: [id number] Ondansetron HCl (Zofran) Confirm Administered Dose 4 mg .ROUTE .STK-MED ONE Stop: 06/27/19 18:41 Last Admin: 06/27/19 19:14 Dose: 4 mg Documented by: [id number] Ticagrelor (Brilinta) Confirm Administered Dose 180 mg PO .STK-MED ONE Stop: 06/27/19 17:34 Last Admin: 06/27/19 17:36 Dose: 180 mg Documented by: [id number] Medical Decision Making Medical Records Attestation: I reviewed the patient's medical records. Home Medications Current Medication List: was personally reviewed by la Laboratory Data Attestation: I reviewed the patient's lab results. Result diagrams: 06/27/19 16:20 06/27/19 16:20 Lab Results 06/27/19 06/27/19 06/27/19 Range/Units 16:20 16:20 16:20 WBC 5.51 (4.8-10.8) K/uL RBC 4.17 L (4.2-5.4) M/uL Hgb 12.5 (12.0-16.0) g/dL Hct 38.0 (37-47) % MCV 91.1 (80-100) fL MCH 30.0 (25-34) pg MCHC 32.9 (32-36) g/dL RDW Std Deviation 44.3 (36.4-46.3) fL RDW Coeff of Magan 13.5 (11.5-14.5) % Plt Count 235 (130-400) K/uL MPV 9.6 (7.4-10.4) fL Immature Gran % (Auto) 0.2 % Neut % (Auto) 36.0 % Lymph % (Auto) 49.2 % [place] % (Auto) 14.0 % Eos % (Auto) 0.2 % Baso % (Auto) 0.4 % Immature Gran # (Auto) 0.01 (0.00-0.02) K/uL Neut # (Auto) 1.99 (1.4-6.5) K/uL Lymph # (Auto) 2.71 (1.2-3.4) K/uL [place] # (Auto) 0.77 H (0.11-0.59) K/uL Eos # (Auto) 0.01 (0-0.5) K/uL Baso # (Auto) 0.02 (0-0.2) K/uL PT 9.8 (9.0-12.0) Seconds INR 1.0 (0.9-1.1) Activ Coag Time Kaolin (94-140) SECONDS Sodium 144 (136-145) mmol/L Potassium 3.9 (3.5-5.1) mmol/L Chloride 110 H (98-107) mmol/L Carbon Dioxide 28 (21-32) mmol/L Anion Gap 6.0 (3-11) BUN 10 (7-18) mg/dl Creatinine 0.83 (0.6-1.2) mg/dl Est Cr Clr Drug Dosing 84.2 ml/min Est GFR ( Amer) 87.0 Est GFR (Non-Af Amer) 75.0 BUN/Creatinine Ratio 12.5 (10-20) Glucose 93 (70-99) mg/dl Calcium 9.4 (8.5-10.1) mg/dl Magnesium (1.8-2.4) mg/dl Total Bilirubin 0.1 L (0.2-1) mg/dl AST 20 (15-37) U/L ALT 29 (12-78) U/L Alkaline Phosphatase 115 (45-117) U/L Total Creatine Kinase 70 (26-192) U/L CK-MB (CK-2) 1.4 (0.5-3.6) ng/ml CK/CKMB % Calc 2.0 (0-3.0) POC Troponin I (0-0.045) ng/ml Troponin I 0.652 H* (0-0.045) ng/ml Total Protein 6.7 (6.4-8.2) gm/dl Albumin 3.4 (3.4-5.0) gm/dl Globulin 3.3 (2.5-4.0) gm/dl Albumin/Globulin Ratio 1.0 (0.9-2) Lipase 83 (73-393) U/L TSH (0.300-4.500) uIu/ml 06/27/19 06/27/19 06/27/19 Range/Units 16:20 16:28 18:15 WBC (4.8-10.8) K/uL RBC (4.2-5.4) M/uL Hgb (12.0-16.0) g/dL Hct (37-47) % MCV (80-100) fL MCH (25-34) pg MCHC (32-36) g/dL RDW Std Deviation (36.4-46.3) fL RDW Coeff of Magan (11.5-14.5) % Plt Count (130-400) K/uL MPV (7.4-10.4) fL Immature Gran % (Auto) % Neut % (Auto) % Lymph % (Auto) % [place] % (Auto) % Eos % (Auto) % Baso % (Auto) % Immature Gran # (Auto) (0.00-0.02) K/uL Neut # (Auto) (1.4-6.5) K/uL Lymph # (Auto) (1.2-3.4) K/uL [place] # (Auto) (0.11-0.59) K/uL Eos # (Auto) (0-0.5) K/uL Baso # (Auto) (0-0.2) K/uL PT (9.0-12.0) Seconds INR (0.9-1.1) Activ Coag Time Kaolin 224 H (94-140) SECONDS Sodium 144 (136-145) mmol/L Potassium 4.1 (3.5-5.1) mmol/L Chloride 110 H (98-107) mmol/L Carbon Dioxide 28 (21-32) mmol/L Anion Gap 6.0 (3-11) BUN 11 (7-18) mg/dl Creatinine 0.79 (0.6-1.2) mg/dl Est Cr Clr Drug Dosing 88.5 ml/min Est GFR ( Amer) 92.3 Est GFR (Non-Af Amer) 79.7 BUN/Creatinine Ratio 14.2 (10-20) Glucose 90 (70-99) mg/dl Calcium 9.3 (8.5-10.1) mg/dl Magnesium 1.9 (1.8-2.4) mg/dl Total Bilirubin 0.1 L (0.2-1) mg/dl AST 22 (15-37) U/L ALT 31 (12-78) U/L Alkaline Phosphatase 114 (45-117) U/L Total Creatine Kinase 74 (26-192) U/L CK-MB (CK-2) (0.5-3.6) ng/ml CK/CKMB % Calc (0-3.0) POC Troponin I 0.69 H (0-0.045) ng/ml Troponin I (0-0.045) ng/ml Total Protein 6.4 (6.4-8.2) gm/dl Albumin 3.5 (3.4-5.0) gm/dl Globulin 2.8 (2.5-4.0) gm/dl Albumin/Globulin Ratio 1.2 (0.9-2) Lipase (73-393) U/L TSH 0.788 (0.300-4.500) uIu/ml 06/27/19 Range/Units 18:43 WBC (4.8-10.8) K/uL RBC (4.2-5.4) M/uL Hgb (12.0-16.0) g/dL Hct (37-47) % MCV (80-100) fL MCH (25-34) pg MCHC (32-36) g/dL RDW Std Deviation (36.4-46.3) fL RDW Coeff of Magan (11.5-14.5) % Plt Count (130-400) K/uL MPV (7.4-10.4) fL Immature Gran % (Auto) % Neut % (Auto) % Lymph % (Auto) % [place] % (Auto) % Eos % (Auto) % Baso % (Auto) % Immature Gran # (Auto) (0.00-0.02) K/uL Neut # (Auto) (1.4-6.5) K/uL Lymph # (Auto) (1.2-3.4) K/uL [place] # (Auto) (0.11-0.59) K/uL Eos # (Auto) (0-0.5) K/uL Baso # (Auto) (0-0.2) K/uL PT (9.0-12.0) Seconds INR (0.9-1.1) Activ Coag Time Kaolin 252 H (94-140) SECONDS Sodium (136-145) mmol/L Potassium (3.5-5.1) mmol/L Chloride (98-107) mmol/L Carbon Dioxide (21-32) mmol/L Anion Gap (3-11) BUN (7-18) mg/dl Creatinine (0.6-1.2) mg/dl Est Cr Clr Drug Dosing ml/min Est GFR ( Amer) Est GFR (Non-Af Amer) BUN/Creatinine Ratio (10-20) Glucose (70-99) mg/dl Calcium (8.5-10.1) mg/dl Magnesium (1.8-2.4) mg/dl Total Bilirubin (0.2-1) mg/dl AST (15-37) U/L ALT (12-78) U/L Alkaline Phosphatase (45-117) U/L Total Creatine Kinase (26-192) U/L CK-MB (CK-2) (0.5-3.6) ng/ml CK/CKMB % Calc (0-3.0) POC Troponin I (0-0.045) ng/ml Troponin I (0-0.045) ng/ml Total Protein (6.4-8.2) gm/dl Albumin (3.4-5.0) gm/dl Globulin (2.5-4.0) gm/dl Albumin/Globulin Ratio (0.9-2) Lipase (73-393) U/L TSH (0.300-4.500) uIu/ml ECG Data Attestation: I personally reviewed and interpreted this ECG as follows: Indication: chest pain Rate (beats per minute): 60 Rhythm: normal sinus Findings: + other (IL, QRS, and QTC within normal limits) and + ST elevation (Leads 2 and 3. AVF in V4-V6. ) Additional Comments: Second EKG performed: NSR 61. IL, QRS, and QTC within normal limits. Mild ST elevation in leads 2 and 3. aVF A4-V6. Third EKG performed: NSR 64. IL, QRS, and QTC within normal ST elevation in leads 2 and 3. aVF. Blood Pressure Blood Pressure Findings: Elevated blood pressure Blood Pressure Disposition: further management by hospitalist [facility] Narrative 1702: Nursing staff brought me the patient's EKG. There was a significant wait in the ED due to a time of high acuity and high volume in the ED. The patient was triaged and cardiac protocols were started. POC troponin was elevated at 0.69 and we went to see the patient. 1703: Past medical records reviewed. The patient was evaluated in room A12B. A complete history and physical exam was performed. 1706: EKG was performed. NSR 60. IL, QRS, and QTC were normal. Mild ST elevation in leads II and III. AVF in V4-V6. 1715: Second EKG was performed. NSR 61. IL, QRS, and QTC were within normal limits. Worsening ST elevation in leads II and III. AVF V4-V6. Concern for STEMI. Will discuss with cardiology, 1722: I spoke with Dr. Sutherland about the patient's case. We went over the patient's EKG and called a heart alert. Third EKG was performed. NSR 64. IL, QRS, and QTC were within normal limits. Worsening ST elevation in leads II and III. AVF. Aspirin, sublingual nitro, and started on a liter of fluid. Cardiac pads were placed on the patient. 1730: Dr. Sutherland is at bedside with patient and taking the patient to the laboratory aide. Impression & Plan ST elevation myocardial infarction (STEMI) Critical Care Time Critical Care Time: Yes Total Critical Care Time: 35 I have personally spent 35 minutes of critical care time in the direct management of this patient. This includes bedside care, interpretation of diagnostic studies, and testing, discussion with consultants, patient, and family members, and other required patient management activities. This 35 minutes is in excess of all separately billable procedures. Discharge Plan Visit Data *Final* Discharge Date/Time: 06/27/19 17:40 Chief Complaint: Chest Pain Stated Complaint: CHEST PAIN ED Provider: Jose Brandon Discharge Problem: ST elevation myocardial infarction (STEMI) Patient Disposition: Admitted As Inpatient Discharge Instructions Interventions: ED Discharge Assessment Last Done: 06/27/19 17:40 Discharge Problem: ST elevation myocardial infarction (STEMI) Qualifiers: Involved coronary artery: unspecified coronary artery Qualified Code(s): I21.3 - ST elevation (STEMI) myocardial infarction of unspecified site The scribe's documentation has been prepared under my direction and personally reviewed by me in its entirety. I confirm that the note above accurately reflects all work, treatment, procedures, and medical decision making performed by me.
[2019-06-28 01:43] LABS: Basophils # (auto) 0.02 K/uL (0-0.2); Basophils % (auto) 0.4 %; Eosinophils # (auto) 0.01 K/uL (0-0.5); Eosinophils % (auto) 0.2 %; Hematocrit (blood only) 34.1 % (37-47); Hemoglobin 11.3 g/dL (12.0-16.0); Immature Granulocytes # (auto) 0.01 K/uL (0.00-0.02); Immature Granulocytes % (auto) 0.2 %; Lymphocytes # (auto) 2.56 K/uL (1.2-3.4); Lymphocytes % (auto) 45.6 %; Mean Corpuscular Hemoglobin 29.9 pg (25-34); Mean Corpuscular Hgb Conc 33.1 g/dL (32-36); Mean Corpuscular Volume 90.2 fL (80-100); Mean Platelet Volume 9.2 fL (7.4-10.4); Monocytes # (auto) 0.65 K/uL (0.11-0.59); Monocytes % (auto) 11.6 %; Neutrophils # (auto) 2.37 K/uL (1.4-6.5); Platelet Count 203 K/uL (130-400); RDW Coefficient of Variation 13.5 % (11.5-14.5); RDW Standard Deviation 44.5 fL (36.4-46.3); Red Blood Count 3.78 M/uL (4.2-5.4); White Blood Count 5.62 K/uL (4.8-10.8)
[2019-06-28 03:16] LABS: BUN Creatinine Ratio 12.2 (10-20); Calcium 8.4 mg/dl (8.5-10.1); Creatinine Clr Calc Pharmacy 78.5 ml/min; Est GFR (Non-African American) 69.9; Potassium 3.5 mmol/L (3.5-5.1)
[2019-06-28 03:43] LABS: Troponin I 0.799 ng/ml (0-0.045)
[2019-06-28 06:23] LABS: Estimated Average Glucose 120 mg/dl; Hemoglobin A1C 5.8 % (4.5-5.6)
[2019-06-28] MEDS: TICAGRELOR 90 MG TAB PO SCH ×2 (07:59→19:20)
[2019-06-28] MEDS: lisinopriL 5 MG TAB PO SCH (08:00)
[2019-06-28] MEDS: METOPROLOL TARTRATE 25 MG TAB PO SCH ×2 (08:00→19:20)
[2019-06-28] MEDS ORDERED: ATORVASTATIN 40 MG TAB PO SCH (09:00)
[2019-06-28] MEDS ORDERED: ENOXAPARIN INJ 40 MG/0.4 ML SYR SQ SCH (09:00)
[2019-06-28] MEDS ORDERED: PANTOprazole 40 MG TAB PO SCH (09:00)
[2019-06-28] MEDS ORDERED: ASPIRIN 81 MG ECTAB PO SCH (09:00)
--- NOTE | 2019-06-28 12:42 | Cardiology Progress Note ---
Date of Service June 28, 2019 Assessment & Plan (1) Acute IA: 2. 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 Residual diagonal disease 4. Preserved LV function with inferior/apical hypokinesis. 5. LVH 6. Hypertension. hemodynamically and electrically stable. no access site complications. LV function preserved. minimal troponin elevation. --Continue DAPT with ASA, Ticagrelor --Increase lisinopril back to home 20mg daily --Continue current metoprolol -- Continue statin From a cardiac standpoint OK for discharge this afternoon if remains stable after up, walking halls. Follow-up with me in 2 weeks. Subjective Feeling well today. No chest pain. Brief episodes, seconds of shortness of breath. No other new concerns. Tele reviewed -- no events. Review of Systems Review of Systems: All systems reviewed & are unremarkable except as noted in HPI & below Physical Exam Physical Exam: General: Comfortable, no acute distress HEENT: Sclerae anicteric, mucous membranes moist Lungs: Clear to auscultation bilaterally, no rhonchi or wheezes Cardiac: Regular rate and rhythm, no murmurs. Abdomen: Soft, nontender Extremities: Warm, well perfused, no edema. Right radial artery access site - no ecchymosis/hematoma. Pulse intact Skin: No rashes or lesions. Neuro: Nonfocal Psych: Alert orient x3, normal affect and mood Results & Data Vital Signs (Past 12 Hours) Vital Signs Temp Pulse Pulse Resp BP Pulse Ox 06/28/19 11:17 98.8 F 64 20 153/86 H 92 06/28/19 07:20 98.2 F 70 20 156/74 H 95 06/28/19 04:17 98.6 F 67 18 106/53 L 96 06/28/19 01:41 62 PG Care Time/CCT Total # of Minutes Spent Total Time Spent with Patient: Total time spent is greater than 50% in coordination of care (as documented) at patient's floor/unit and/or counseling patient:
--- NOTE | 2019-06-28 14:09 | Hospitalist Progress Note ---
Date of Service June 28, 2019 Assessment & Plan (1) Acute [place]: Present on admission with chest pain Initial EKG showed sinus rhythm with subtle ST change Initial troponin 0.652 Subsequent EKG almost an hour later showed borderline inferior ST elevations Heart alert called and had emergent cardiac cath done Acute on chronic 100% ostial PDA occlusion with [id number] collaterals from LAD Moderate to severe single-vessel non-culprit coronary artery disease 60 to 70% stenosis in distal small circumflex Successful PCI of ostial RCA with single drug-eluting stent ECHO showed severe hypokinesis of inferior wall and mild inferolateral hypokinesis with EF 55-60% Continue dual-antiplatelet therapy for at least one year with aspirin and ticagrelor Continue lisinopril 20mg daily, metoprolol and statin Will refer for cardiac rehab Case discussed with cardiology and OK from cardiology to discharge home today Follow up with [facility] cardiology group Follow up with your primary care provider HTN Continue Lisinopril 20mg daily, Metoprolol 25mg BID Monitor BP Dyslipidemia Chol 169, LDL 52, HDL 40, Trig 384 Continue atorvastatin 80mg DVT px on Lovenox subq Disposition Will discharge home today Follow up with cardiology Follow up with your PCP Subjective Pt was seen and examined. Lying in bed with no distress. Pt said that she feels fine She said that she does not feel any pressure like chest pain since after the cardiac cath and stent placement She has been walking in the hallway with no discomfort She would like to go home today Denies any chest pain, palpitation, dizziness and SOB Physical Exam Physical Exam: General- No acute distress Head- atraumatic Eyes- PERRL, EOMI, ENT- oropharynx clear Neck- supple, no JVD Lungs- clear to auscultation Heart- regular rhythm; no murmur Abdomen- normal bowel sounds, soft, nontender Extremities- no calf tenderness, no hematoma in the right wrist area from the cardiac cath Neuro- alert, oriented x 3; PERRL, EOMI; no facial palsy; no dysarthria Skin- warm & dry Results & Data Vital Signs (Past 12 Hours) Vital Signs Temp Pulse Resp BP Pulse Ox 06/28/19 11:17 37.1 C 64 20 153/86 H 92 06/28/19 07:20 36.8 C 70 20 156/74 H 95 06/28/19 04:17 37 C 67 18 106/53 L 96
--- NOTE | 2019-06-29 08:41 | Discharge Summary ---
Date of Service June 28, 2019 Admission HPI Per Admitting Provider History obtained from patient and records. Medical history significant for hypertension, hyperlipidemia, GERD, ongoing tobacco abuse, skin cancer as per records. Recent confinement September 2018 under Orthopedics service for lumbar decompression surgery. 1 week history of intermittent chest discomfort reflux-like with occasional radiation to the left arm shortness of breath. Patient seen at PCP's office. Augmentin prescription given for frontal sinusitis. Home PPI doubled in dose. Overnight she had worsening and more persistent chest discomfort symptoms. At the ER, Heart alert called. Subsequent PCI of postural RCA lesion with SHERMAN done at the [facility]. Patient currently at MICU room complaining of post cath right wrist pain. Medical History as above Surgical History : By C, hysterectomy, back surgery, oophorectomy Family History : Diabetes, heart disease, hypertension Personal/Social history : Half pack daily, occasional EtOH intake, retired from [email or web address] work Admission Exam Per Admitting Provider GENERAL: Slightly uncomfortable, pleasant, obese, no respiratory distress, eating dinner SKIN: Normal color, warm HEENT: Bespectacled, pink palpebral conjunctivae, no ptosis, dry buccal mucosa NECK : Supple, short neck, no tenderness CHEST : CTA, no tenderness HEART : RRR, no obvious murmurs ABDOMEN: distention, nontender EXTREMITIES : Minimal LE swelling, no LE tenderness, no other conspicuous deformities noted NEUROLOGIC : Coherent, no facial asymmetry, no other gross focality Principal Diagnosis Acute Myocardial infarction Hypertension Dyslipidemia Discharge Exam General- No acute distress Head- atraumatic Eyes- PERRL, EOMI, ENT- oropharynx clear Neck- supple, no JVD Lungs- clear to auscultation Heart- regular rhythm; no murmur Abdomen- normal bowel sounds, soft, nontender Extremities- no calf tenderness, no hematoma in the right wrist area from the cardiac cath Neuro- alert, oriented x 3; PERRL, EOMI; no facial palsy; no dysarthria Skin- warm & dry Discharge Data Allergies Allergy/AdvReac Type Severity Reaction Status Date / Time shrimp Allergy Intermediate fever,n/v,s Verified 09/18/18 11:59 weating Consultations 06/27/19 19:19 Consult Cardiology Routine 06/27/19 19:47 Consult Cardiac Rehabilitation Routine Procedures Performed Operation Date: 06/27/19 17:30 Actual Procedures s Cineradiography w/Routine Exam - John Sutherland MD p Cath, Left with Cors and Vent - John Sutherland MD s Aspiration/PCI w/SHERMAN for Stemi - John Sutherland MD Ordered Studies 06/27/19 17:28 CL Cath Imgs for PACS use only Stat XR chest 1V portable HISTORY: Atypical Chest pain COMPARISON: Chest 09/04/2018. FINDINGS: No pneumothorax. No pleural effusions. The cardiac silhouette is mildly enlarged. No focal lung consolidations to suggest pneumonia. No evidence for pulmonary edema. IMPRESSION: Mild cardiomegaly. Electronically signed by: Florin Ortega M.D. 06/27/2019 5:27 PM Dictated: 06/27/19 172 Transcribed: 06/27/19 172 Hospital Course (1) Acute [place]: Present on admission with chest pain Initial EKG showed sinus rhythm with subtle ST change Initial troponin 0.652 Subsequent EKG almost an hour later showed borderline inferior ST elevations Heart alert called and had emergent cardiac cath done Acute on chronic 100% ostial PDA occlusion with [id number] collaterals from LAD Moderate to severe single-vessel non-culprit coronary artery disease 60 to 70% stenosis in distal small circumflex Successful PCI of ostial RCA with single drug-eluting stent ECHO showed severe hypokinesis of inferior wall and mild inferolateral hypokinesis with EF 55-60% Continue dual-antiplatelet therapy for at least one year with aspirin and ticagrelor Continue lisinopril 20mg daily, metoprolol and statin Will refer for cardiac rehab Case discussed with cardiology and OK from cardiology to discharge home today Follow up with [facility] cardiology group Follow up with your primary care provider HTN Continue Lisinopril 20mg daily, Metoprolol 25mg BID Monitor BP Dyslipidemia Chol 169, LDL 52, HDL 40, Trig 384 Continue atorvastatin 80mg DVT px on Lovenox subq Disposition Will discharge home today Follow up with cardiology Follow up with your PCP Total Time Total Time Spent Total Time Spent (In Minutes): 35 minutes Total Time Includes: Examination of the Patient, Discharge Planning, Medication Reconciliation, Communication With Other Providers and Other Discharge Plan Discharge Items Patient Disposition: Home - Self-Care Reason For Visit: ACS Discharge Diagnosis: Acute Myocardial infarction Hypertension Dyslipidemia Activity: Resume your previous activity Activity Comment: As tolerated Non-emergency contact: Primary Care Provider and Judge'S Clerk Call non-emergency contact if: you have any medication questions Follow-up/Referrals: Marleen Parker PA-C [Primary Care Provider] - Diet: Heart Healthy Addtl Attending Provider Instructions: Follow up with [facility] cardiology group (Office will contact you for the appointment) Follow up with your primary care provider within 1 week (Office will call you for the appointment ) You physician or supervisor press room will refer you for cardiac rehab Continue dual-antiplatelet therapy for at least one year with aspirin and ticagrelor Monitor for any abnormal bleeding (blood in your stool and urine) Seek medical attention if you develop any bleeding Your physician will check your liver enzymes in 1-2 weeks to monitor your liver function since you are starting on cholesterol medication (statin) Fall precaution Keep the area for the cardiac cath clean and dry to avoid any infection Do not use creams, lotions or ointment on the wound site Do not take a bath, tub soak, go in a Jacuzzi, or swim in a pool or ardon for one week after the procedure. Do not participate in strenuous activities for 3 days after the procedure. Gradually increase your activities until you reach your normal activity level within two days after the procedure. Avoid heavy lifting (more than 10 pounds) (This is a little more than a gallon of milk), pushing, twisting or pulling heavy objects for the first 5 days after the procedure. Pending Studies at Discharge: No Stand-Alone Forms: Call Back Authorization, My [facility] Medications and DC Order Prescriptions: New Brilinta 90 mg Tablet 90 mg PO BID 30 Days Qty: 60 RF: 0 atorvastatin 40 mg Tablet 80 mg PO QAM 30 Days Qty: 60 RF: 0 nitroglycerin [Nitrostat] 0.4 mg Tablet, Sublingual 0.4 mg sublingual PRN PRN (Reason: chest pain) Qty: 30 RF: 0 metoprolol tartrate 25 mg Tablet 25 mg PO BID 30 Days Qty: 60 RF: 0 aspirin [Ecotrin Low Strength] 81 mg Tablet,Delayed Release (Dr/Ec) 81 mg PO QAM 30 Days Qty: 30 RF: 0 Continued multivitamin Tablet 1 tab PO QAM RF: 0 lisinopril 20 mg Tablet 20 mg PO QAM RF: 0 citalopram 20 mg Tablet 20 mg PO QAM RF: 0 pantoprazole 40 mg Tablet,Delayed Release (Dr/Ec) 40 mg PO QAM RF: 0 levocetirizine [Xyzal] 5 mg Tablet 5 mg PO HS PRN (Reason: Allergy Symptoms) RF: 0 tramadol 50 mg Tablet 50 mg PO Q4H PRN (Reason: Pain (Scale Score 1-3)) Qty: 30 RF: 0 oxycodone 5 mg Tablet 5 mg PO Q4H PRN (Reason: Pain) Qty: 30 RF: 0 Discharge Orders: Discharge Order (Routine); Ordered 06/28/19 Ordered By: Mercy Obregon/Other Patient Handouts: Atorvastatin Calcium Oral tablet, Ticagrelor Oral tablet, Metoprolol Tartrate Oral tablet, Nitroglycerin Sublingual tablet, Heart Attack Dc, ED Cardiac Cath Post Bleed Hematom Admission Data Admit Date/Time: 06/27/19 19:47 Attending Provider: Mercy Kaminski Admit Provider: John Sutherland Primary Care Provider: Marleen Parker Other Providers: John Sutherland ; Toño Leo Other Interventions: Discharge Summary Assessment (RN) Last Done: 06/28/19 18:44 DC Date/Time DO NOT enter until pt leaves facility: 06/28/19 20:14
== END 2019-06-28 20:14 | disposition home or self-care (01) | DRG 247 ==
LOC: ED 16:05 → CC 17:40 → SUATTDRO 19:47 → 2E 19:47
DX: F17.210 Nicotine dependence, cigarettes, uncomplicated; Z96.652 Presence of left artificial knee joint; E66.01 Morbid (severe) obesity due to excess calories; Z83.3 Family history of diabetes mellitus; I10 Essential (primary) hypertension; Z82.49 Family history of ischemic heart disease and other diseases of the circulatory system; I21.3 ST elevation (STEMI) myocardial infarction of unspecified site; I25.10 Atherosclerotic heart disease of native coronary artery without angina pectoris; E78.5 Hyperlipidemia, unspecified

== ENCOUNTER 2020-05-02 15:03 | Observation (INO) ==
[2020-05-02] MEDS ORDERED: ONDANSETRON INJ 2 MG/ML 2 ML VIAL IV STA (16:08)
[2020-05-02] MEDS ORDERED: ASPIRIN CHEW 324 MG PO STA (16:08)
--- NOTE | 2020-05-02 16:14 | Emergency Department Note ---
Impression & Plan Chest pain, Unstable angina, Abnormal ECG ED Provider Note NAME: JOANN MOHAN AGE: 64 SEX: F : 1955 ARRIVES VIA: Walk-In INFORMANT: Patient ED PROVIDER(S): Fede García DO CHIEF COMPLAINT: Chest pain HPI: Patient is a 64-year-old female with a past medical history of CAD with stent, hypertension, hyperlipidemia, on Plavix who presents the ER for chest pain. Her symptoms started around 11 when she went out to walk the dog. She felt shocky throughout her entire body. She started to have left-sided chest pain. She describes it as a dull ache in combination with a pressure. Is currently a 2 out of 10. Has been improving. Is been worse when she gets up and walks around but now improves with rest. No shortness of breath. She had some initial right arm pain and now her left arm feels different. Denies any weakness. No headache change in vision. No belly pain. Admits to nausea. She notes that this does not feel nearly as severe as the chest pressure that she got when she had her initial AR in June 2019. She also admits that she is under a lot of stress recently. ROS: See above HPI for pertinent positives & negatives. A total of 10 systems reviewed and were otherwise negative. PAST MEDICAL HISTORY:See Below PAST SURGICAL HISTORY:See Below FAMILY HISTORY:See Below SOCIAL HISTORY:See Below HOME MEDICATIONS:See Below ALLERGIES:See Below VITALS:See Below PHYSICAL EXAMINATION: GENERAL: Sitting up in bed, alert, disheveled, mild distress EYE EXAM: normal conjunctiva. OROPHARYNX: no exudate, no erythema, lips, buccal mucosa, and tongue normal and mucous membranes are moist NECK: supple, no nuchal rigidity, no adenopathy, non-tender LUNGS: Clear to auscultation. Normal chest wall mechanics HEART: no murmurs, S1 normal and S2 normal ABDOMEN: abdomen soft, non-tender, normo-active bowel sounds, no masses, no rebound or guarding. BACK: Back is symmetrical on inspection and there is no deformity, no midline tenderness, no CVA tenderness. SKIN: no rashes and no bruising UPPER EXTREMITIES: upper extremities are grossly normal. LOWER EXTREMITIES: No pitting edema. Calves are equal bilateral NEURO EXAM: Normal sensorium, cranial nerves II-XII grossly intact, normal speech, no gross weakness of arms, no gross weakness of legs. MEDICAL DECISION MAKING: Patient is a 64-year-old female with a past medical history of AR that presents the ER for chest pain. Upon presentation she has T wave inversions in V4 through V6. She is given aspirin and nitro. She had resolution of her pain. IV was established blood work was obtained. Labs show no significant leukocytosis or anemia. INR was unremarkable. BMP low with LFTs bilirubin lipase and troponin were negative. Patient was admitted to the hospital service. Chest pain recurred and additional EKG was obtained and showed new T w ave inversions in inferior leads. She was given nitro and placed on heparin drip and bolus. She had no bleeding risk factors which were discussed at bedside. Chest pain again resolved. I updated the admitting service. They were going to discuss with cardiology. Patient was updated bedside. Admitted for further work-up. Triage Nursing notes reviewed. Prior medical records reviewed Vital Signs: reviewed and remarkable for hypertensive and bradycardic Differential diagnosis: Differential diagnoses includes but is not limited to acute coronary syndrome, myocardial infarction, pericarditis, pulmonary embolus, aortic dissection, pneumonia, pneumothorax, musculoskeletal, shingles, esophageal. ER treatment provided: See below Diagnostics interpreted by me: ECG: Sinus bradycardia rate of 49 Normal axis No PVCs DWI in V4 5 and 6 Inferior Q waves Normal QTC T wave inversions is new V4 through V6 in comparison to old performed in June 2019 EKG #2 Sinus bradycardia rate of 42 Inferior T waves inversions and T wave inversions V4 through V6 No PVCs Normal QTC T waves are worse in inferior leads in comparison to first EKG Cardiac Monitoring: An order was placed for continuous cardiac monitoring. The monitor shows a rate of 55 with sinus rhythm. Laboratory studies: As stated above and show below. Imaging studies: Portable AP upright 1 view of the chest shows no focal infiltrate or pneumothorax Consultation(s): Discussed with [facility] Hospitalist for admission ED COURSE: Procedures: none Critical Care: I have personally spent 40 minutes of critical care time in the direct management of this patient. This includes bedside care, interpretation of diagnostic studies, and testing, discussion with consultants, patient, and family members, and other required patient management activities. This 40 minutes is in excess of all separately billable procedures. 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 Beliefs That Will Affect Care: None marital status: Current Living Situation: Spouse and Family Other Information That Helps Us Care for You: No Feels Safe at Home: Yes Safety Concerns: Feels Safe At This Time Allergies Allergies Allergy/AdvReac Type Severity Reaction Status Date / Time No Known Drug Allergies Allergy Unknown Verified 05/02/20 16:46 Home Meds Home Medications Medication Instructions Recorded Confirmed lisinopril 20 mg PO QAM 09/01/18 05/02/20 multivitamin 1 tab PO QAM 09/01/18 05/02/20 pantoprazole 40 mg PO QAM 09/01/18 05/02/20 aspirin 81 mg tablet,delayed 81 mg PO DAILY 10/25/19 05/02/20 release clonidine HCl 0.1 mg tablet 0.1 mg PO DAILY 10/25/19 05/02/20 Previous Rx's Medication Instructions Recorded nitroglycerin [Nitrostat] 0.4 mg SUBLINGUAL PRN PRN #30 tab 06/28/19 clopidogrel 75 mg tablet 75 mg PO DAILY #90 tab 07/17/19 atorvastatin 80 mg tablet 80 mg PO DAILY #90 tab 07/30/19 furosemide 20 mg tablet 20 mg PO DAILY #90 tab 07/30/19 metoprolol tartrate 25 mg tablet 25 mg PO BID #60 tab 10/22/19 Results & Data (ED) Vital Signs Vital Signs - 24 hr 05/02/20 15:12 05/02/20 16:14 05/02/20 16:20 Temperature 37.1 C Temperature Source Oral Pulse Rate 54 L 48 L 47 L Pulse Rate from SpO2 Sensor Respiratory Rate 18 17 23 Respiratory Effort / Characteristics Non-Labored Spontaneous Respiratory Depth Normal Blood Pressure 139/84 Blood Pressure Mean 102 Pulse Oximetry 97 Oxygen Delivery Method Sepsis Recent Fever Within 48 Hours No Sepsis New/Unexplained Change in Mental Status No Sepsis Action Taken by Nursing No Action Required 05/02/20 16:26 05/02/20 16:30 05/02/20 16:33 Temperature Temperature Source Pulse Rate 53 L 51 L Pulse Rate from SpO2 Sensor 54 L 51 L Respiratory Rate 19 17 Respiratory Effort / Characteristics Respiratory Depth Blood Pressure 125/70 Blood Pressure Mean 95 Pulse Oximetry 96 94 93 Oxygen Delivery Method Room Air Sepsis Recent Fever Within 48 Hours Sepsis New/Unexplained Change in Mental Status Sepsis Action Taken by Nursing 05/02/20 16:40 05/02/20 16:50 05/02/20 17:00 Temperature Temperature Source Pulse Rate 53 L 48 L 49 L Pulse Rate from SpO2 Sensor 54 L Respiratory Rate 17 17 13 Respiratory Effort / Characteristics Respiratory Depth Blood Pressure Blood Pressure Mean Pulse Oximetry 90 Oxygen Delivery Method Sepsis Recent Fever Within 48 Hours Sepsis New/Unexplained Change in Mental Status Sepsis Action Taken by Nursing Laboratory Data Result diagrams: 05/02/20 16:16 05/02/20 16:16 Lab Results 05/02/20 05/02/20 05/02/20 Range/Units 16:16 16:16 16:16 WBC 6.61 (4.8-10.8) K/uL RBC 4.99 (4.2-5.4) M/uL Hgb 14.0 (12.0-16.0) g/dL Hct 43.2 (37-47) % MCV 86.6 (80-100) fL MCH 28.1 (25-34) pg MCHC 32.4 (32-36) g/dL RDW Std Deviation 44.6 (36.4-46.3) fL RDW Coeff of Magan 14.2 (11.5-14.5) % Plt Count 175 (130-400) K/uL MPV 9.7 (7.4-10.4) fL Immature Gran % (Auto) 0.0 % Neut % (Auto) 46.3 % Lymph % (Auto) 45.2 % [place] % (Auto) 8.3 % Eos % (Auto) 0.0 % Baso % (Auto) 0.2 % Neut # (Auto) 3.06 (1.4-6.5) K/uL Lymph # (Auto) 2.99 (1.2-3.4) K/uL [place] # (Auto) 0.55 (0.11-0.59) K/uL Eos # (Auto) 0.00 (0-0.5) K/uL Baso # (Auto) 0.01 (0-0.2) K/uL Immature Gran # (Auto) 0.00 (0.00-0.02) K/uL PT 10.4 (9.0-12.0) Seconds INR 1.0 (0.9-1.1) APTT 25.8 (21.0-31.0) Seconds PTT Ratio 0.9 Sodium 145 (136-145) mmol/L Potassium 3.6 (3.5-5.1) mmol/L Chloride 111 H (98-107) mmol/L Carbon Dioxide 28 (21-32) mmol/L Anion Gap 6.0 (3-11) BUN 11 (7-18) mg/dl Creatinine 1.04 (0.6-1.2) mg/dl Est Cr Clr Drug Dosing 69.7 ml/min Est GFR ( Amer) 65.8 Est GFR (Non-Af Amer) 56.7 BUN/Creatinine Ratio 10.5 (10-20) Glucose 92 (70-99) mg/dl Calcium 8.9 (8.5-10.1) mg/dl Total Bilirubin 0.4 (0.2-1) mg/dl AST 19 (15-37) U/L ALT 32 (12-78) U/L Alkaline Phosphatase 127 H (45-117) U/L Troponin I < 0.015 (0-0.045) ng/ml Total Protein 6.8 (6.4-8.2) gm/dl Albumin 3.5 (3.4-5.0) gm/dl Globulin 3.3 (2.5-4.0) gm/dl Albumin/Globulin Ratio 1.1 (0.9-2) Lipase 114 (73-393) U/L Administered Medications Heparin Sodium/Dextrose (Heparin Sodium/Dextrose) 25,000 units in 500 mls @ 19 mls/hr IV .Q24H JOHNNY; Protocol Stop: 06/01/20 18:44 Last Admin: 05/02/20 19:07 Dose: 950 units/hr, 19 mls/hr Documented by: [id number] Cosigned by: [id number] Metoprolol Tartrate (Lopressor) 25 mg PO BID [facility] Stop: 06/01/20 20:59 Last Admin: 05/02/20 20:25 Dose: Not Given Documented by: [id number] Nitroglycerin (Nitro-Bid 2%) 0.5 inch EXT Q6H [facility] Stop: 06/01/20 18:29 Last Admin: 05/02/20 20:24 Dose: Not Given Documented by: [id number] Nitroglycerin (Nitrostat) 0.4 mg SL PRN PRN PRN Reason: Chest Pain Stop: 06/01/20 18:47 Last Admin: 05/02/20 19:06 Dose: 0.4 mg Documented by: [id number] Discontinued Medications Aspirin (Aspirin) 324 mg PO NOW STA Stop: 05/02/20 16:09 Last Admin: 05/02/20 16:22 Dose: 324 mg Documented by: [id number] Heparin Sodium (Porcine) (Heparin Sodium (Porcine)) Confirm Administered Dose 5,000 units .ROUTE .STK-MED ONE Stop: 05/02/20 19:02 Last Admin: 05/02/20 19:08 Dose: Not Given Documented by: [id number] Heparin Sodium (Porcine) (Heparin Iv Bolus) Confirm Administered Dose 10,000 units .ROUTE .STK-MED ONE Stop: 05/02/20 19:05 Last Admin: 05/02/20 19:07 Dose: 4,000 units Documented by: [id number] Cosigned by: [id number] Heparin Sodium/Dextrose () 1 ea N/A NOW STA; Protocol Stop: 05/02/20 18:35 Last Admin: 05/02/20 19:08 Dose: Not Given Documented by: [id number] Sodium Chloride (Nss 1000ml) 1,000 mls @ 999 mls/hr IV .Q1H1M JOHNNY Stop: 05/02/20 17:15 Last Infusion: 05/02/20 20:05 Dose: 0 mls/hr Documented by: [id number] Admin: 05/02/20 16:22 Dose: 999 mls/hr Documented by: [id number] Nitroglycerin (Nitrostat) 0.4 mg SL UD PRN PRN Reason: Chest Pain Stop: 06/01/20 16:07 Last Admin: 05/02/20 18:29 Dose: 0.4 mg Documented by: [id number] Admin: 05/02/20 16:30 Dose: 0.4 mg Documented by: [id number] Admin: 05/02/20 16:22 Dose: 0.4 mg Documented by: [id number] Ondansetron HCl (Zofran) 4 mg IV NOW STA Stop: 05/02/20 16:09 Last Admin: 05/02/20 16:22 Dose: 4 mg Documented by: [id number] Discharge Plan Visit Data *Final* Discharge Date/Time: 05/02/20 19:34 Chief Complaint: Chest Pain Stated Complaint: CHEST PAIN ED Provider: Fede García Discharge Problem: Chest pain, Unstable angina, Abnormal ECG Patient Disposition: Admitted As Inpatient Discharge Instructions Interventions: ED Discharge Assessment Last Done: 05/02/20 19:34 Discharge Problem: Chest pain Qualifiers: Chest pain type: unspecified Qualified Code(s): R07.9 - Chest pain, unspecified
[2020-05-02] MEDS ORDERED: SODIUM CHLORIDE 0.9% 1000ML 1,000 ML IV SCH (16:15)
[2020-05-02] MEDS: NITROGLYCERIN SL 0.4 MG/TAB TAB SL PRN ×3 (16:22→18:29)
[2020-05-02 16:24] LABS: Basophils # (auto) 0.01 K/uL (0-0.2); Basophils % (auto) 0.2 %; Hematocrit (blood only) 43.2 % (37-47); Lymphocytes # (auto) 2.99 K/uL (1.2-3.4); Lymphocytes % (auto) 45.2 %; Mean Corpuscular Hemoglobin 28.1 pg (25-34); Mean Corpuscular Hgb Conc 32.4 g/dL (32-36); Mean Corpuscular Volume 86.6 fL (80-100); Mean Platelet Volume 9.7 fL (7.4-10.4); Monocytes # (auto) 0.55 K/uL (0.11-0.59); Monocytes % (auto) 8.3 %; Neutrophils # (auto) 3.06 K/uL (1.4-6.5); Neutrophils % (auto) 46.3 %; Platelet Count 175 K/uL (130-400); RDW Coefficient of Variation 14.2 % (11.5-14.5); RDW Standard Deviation 44.6 fL (36.4-46.3); Red Blood Count 4.99 M/uL (4.2-5.4); White Blood Count 6.61 K/uL (4.8-10.8)
[2020-05-02 16:34] LABS: Partial Thromboplastin Ratio 0.9; Partial Thromboplastin Time 25.8 Seconds (21.0-31.0); Prothrombin Time 10.4 Seconds (9.0-12.0)
--- NOTE | 2020-05-02 16:41 | XRay Report ---
XR chest 1V portable CLINICAL HISTORY: Chest Pain dyspnea COMPARISON STUDY: 06/27/2019 FINDINGS: Stable moderate cardiomegaly. Lungs are clear. Diaphragms are smooth. IMPRESSION: Stable cardiomegaly. No acute process. ACT 112: Negative or not required by law. The above report was generated using voice recognition software. It may contain grammatical, syntax or spelling errors. Electronically signed by: Santi Aguilar M.D. 05/02/2020 4:39 PM
[2020-05-02 16:47] LABS: Alanine Aminotransferase 32 U/L (12-78); Albumin Level 3.5 gm/dl (3.4-5.0); Aspartate Aminotransferase 19 U/L (15-37); BUN Creatinine Ratio 10.5 (10-20); Blood Urea Nitrogen 11 mg/dl (7-18); Calcium 8.9 mg/dl (8.5-10.1); Carbon Dioxide 28 mmol/L (21-32); Chloride 111 mmol/L (98-107); Creatinine Clr Calc Pharmacy 69.7 ml/min; Est GFR (African American) 65.8; Est GFR (Non-African American) 56.7; Glucose 92 mg/dl (70-99); Lipase 114 U/L (73-393); Potassium 3.6 mmol/L (3.5-5.1); Sodium 145 mmol/L (136-145)
[2020-05-02 16:52] LABS: Albumin Globulin Ratio 1.1 (0.9-2); Alkaline Phosphatase 127 U/L (45-117); Bilirubin,Total 0.4 mg/dl (0.2-1); Globulin 3.3 gm/dl (2.5-4.0); Total Protein 6.8 gm/dl (6.4-8.2); Troponin I < 0.015 ng/ml (0-0.045)
--- NOTE | 2020-05-02 18:22 | History & Physical Report ---
Date of Service May 02, 2020 Assessment & Plan (1) Chest pain: Pt is 64 y/o F with PMH and STEMI s/p SHERMAN to PDA in 06/2019 with residual 60-70% small distal circumflex stenosis, HTN, dyslipidemia, GERD presented to ER with complaint of chest pain today. Patient states walked outside to take her dog outside when she had sudden "wave of shocklike sensation through her body" also described as generalized weakness and lightheadedness, nausea, right arm tingling that resolved with sitting. Walked into house then started with left sided chest aching and pressure. In ER vital stable, initial troponin negative, EKG with t wave inversions anterior lateral leads. CHEST PAIN R/O ACS. Risk factors: CAD, HTN, hyperlipidemia, obesity. pt with h/o angina like symptoms with exertion -In ER given aspirin 324 mg, Zofran, 1 mL NSS, 2 sublingual nitro with relief of chest pain -Monitor on tele for further significant bradycardia -Repeat EKG in am -Will trend troponin -Echo -N.p.o. midnight -lipid panel in a.m. -Continue aspirin, Plavix, atorvastatin, lisinopril, metoprolol with holding parameters -Nitropaste -repeat EKG for CP -Cardiology consult (2) Hypertension: Continue lisinopril, metoprolol with holding parameters, clonidine, Lasix (3) GERD (gastroesophageal reflux disease): -Continue PPI DVT Prophylaxis -Heparin SQ Full Code as per discussion with pt Follows with for routine care Pt was seen and care coordinated with Dr Land. See addendum History of Present Illness Chief Complaint: CP Primary Care Provider: Chastity Soriano PA-C Pt is 64 y/o F with PMH and STEMI s/p SHERMAN to PDA in 06/2019 with residual 60-70% small distal circumflex stenosis, HTN, dyslipidemia, GERD presented to ER with complaint of chest pain today. Patient states walked outside to take her dog outside when she had sudden "wave of shocklike sensation through her body" also described as generalized weakness and lightheadedness and states had a little nausea. She also reports was having right arm tingling. Patient states that down and symptoms resolved. She got up and walked into the house and started with left sided chest aching and pressure. Denies any shortness of breath, palpitations, syncope. No prior treatment. Chest discomfort persisted for approximately 2-3 hours until ER evaluation where she was giving 2 sublingual nitro with relief of chest pain. Patient states has experienced chest heaviness with shopping and carrying wood which resolves with rest over the past several months. Denies fever/chills, diaphoresis, V/D/C, GEE, syncope, vision changes, neck pain, orthopnea, cough, sore throat, choking, otalgia, rhinorrhea, abd ominal pain, paresthesias, extremity edema, rashes, urinary symptoms. Allergies Allergy/AdvReac Type Severity Reaction Status Date / Time No Known Drug Allergies Allergy Unknown Verified 05/02/20 16:46 Home Medications Home Medications Medication Instructions Recorded Confirmed Type lisinopril 20 mg PO QAM 09/01/18 05/02/20 History multivitamin 1 tab PO QAM 09/01/18 05/02/20 History pantoprazole 40 mg PO QAM 09/01/18 05/02/20 History nitroglycerin [Nitrostat] 0.4 mg SUBLINGUAL PRN PRN #30 tab 06/28/19 05/02/20 Rx clopidogrel 75 mg tablet 75 mg PO DAILY #90 tab 07/17/19 05/02/20 Rx atorvastatin 80 mg tablet 80 mg PO DAILY #90 tab 07/30/19 05/02/20 Rx furosemide 20 mg tablet 20 mg PO DAILY #90 tab 07/30/19 05/02/20 Rx metoprolol tartrate 25 mg tablet 25 mg PO BID #60 tab 10/22/19 05/02/20 Rx aspirin 81 mg tablet,delayed 81 mg PO DAILY 10/25/19 05/02/20 History release clonidine HCl 0.1 mg tablet 0.1 mg PO DAILY 10/25/19 05/02/20 History Past Med/Surg History Social History Smoking Status: Current every day smoker Tobacco Type: Cigarettes Cigarettes Per Day: 10-15; Second Hand Exposure: No; Tobacco Cessation Education Requested by Patient: No Hx Alcohol Use: Yes Alcohol type: beer Hx Substance Use: No Preferred Language: Khmer Communication Ability: Effective Grain Receiver Required: No Beliefs That Will Affect Care: None marital status: Current Living Situation: Spouse and Family Other Information That Helps Us Care for You: No Feels Safe at Home: Yes Safety Concerns: Feels Safe At This Time Review of Systems Review of Systems: All systems reviewed & are unremarkable except as noted in HPI & below Physical Exam Physical Exam: General: no distress, obese Head: normocephalic, atraumatic Eyes: PERRL, conjunctiva non-injected, anicteric ENT: normal inspection external ears, nose, mucous membranes moist Neck: supple, trachea midline, non-tender Lungs: clear, no respiratory distress, no wheezing/rhonchi/rales CV: bradycardia, rate 52, regular rhythm, no murmur appreciated, no pretibial edema; no chest wall tenderness to palpation Abd: normal BS, soft, non-tender Ext: no cyanosis, no calf tenderness Neuro: A&O x 3, no focal deficits noted, normal affect Skin: warm, dry Results & Data Results & Data ([facility]) Vital Signs (Past 12 Hours) Vital Signs Temp Pulse Pulse Resp BP BP Pulse Ox 05/02/20 18:08 50 L 12 170/80 H 97 05/02/20 17:00 49 L 13 05/02/20 16:50 48 L 17 05/02/20 16:40 53 L 17 90 05/02/20 16:33 51 L 17 125/70 93 05/02/20 16:30 53 L 19 94 05/02/20 16:26 96 05/02/20 16:20 47 L 23 05/02/20 16:14 48 L 17 05/02/20 15:12 37.1 C 54 L 18 139/84 97 Laboratory Results Short CBC 05/02/20 Range/Units 16:16 WBC 6.61 (4.8-10.8) K/uL Hgb 14.0 (12.0-16.0) g/dL Hct 43.2 (37-47) % Plt Count 175 (130-400) K/uL BMP 05/02/20 16:16 Sodium 145 Potassium 3.6 Chloride 111 H Carbon Dioxide 28 BUN 11 Creatinine 1.04 Glucose 92 Calcium 8.9 Cardiac Enzymes 05/02/20 Range/Units 16:16 Troponin I < 0.015 (0-0.045) ng/ml Liver Function 05/02/20 Range/Units 16:16 Total Bilirubin 0.4 (0.2-1) mg/dl AST 19 (15-37) U/L ALT 32 (12-78) U/L Alkaline Phosphatase 127 H (45-117) U/L Albumin 3.5 (3.4-5.0) gm/dl Diagnostic Findings CXR: IMPRESSION: Stable cardiomegaly. No acute process. ECG Rhythm: sinus bradycardia Findings: + Q waves and + T-wave inversion (Anterolateral) Code Status & VTE Plan VTE Prophylaxis Plan VTE Prophylaxis will be ordered: Yes Supervising Physician Co-Signing Physician Notes Attending Addendum: care coordinated with MARTHA Marx please refer to her notes for full details, I agree with her notes patient seen and examined, records reviewed by myself as well on exam, patient seen resting in bed, just received 4th nitro SL states chest pain is now 1/10 denies headache, dizziness, SOB, palpitations reports being under a lot of stress lately no other symptoms VS noted and reviewed oriented x 3 , not in distress, speaks in sentences with no effort nor accessory muscle use normal rate, regular rhythm, no murmurs clear breath sounds bilaterally non distended, soft, nontender no bipedal edema, erythema, warmth no neuro deficits hg 14 troponin negative EKG non specific t wave depression on AL leads ASSESSMENT AND PLAN CHEST PAIN, POSSIBLE UNSTABLE ANGINA r/o ACS trend troponins ekg echo Heparin drip continue usual ASA, Plavix, Metoprolol EPISODE OF RIGHT ARM NUMBNESS obtain CT head Neurochecks other diagnoses and plan of care as per MARTHA Marx notes Montana Land MD
[2020-05-02] MEDS ORDERED: Heparin IV Low Dose WITH Bolus STA (18:34)
[2020-05-02] MEDS ORDERED: HEPARIN SODIUM/DEXTROSE 25,000 UNITS/500 ML BAG IV SCH (18:45)
[2020-05-02] MEDS ORDERED: NITROGLYCERIN SL 0.4 MG/TAB TAB SL PRN (18:48)
[2020-05-02] MEDS ORDERED: HEPARIN SOD 5,000 UNIT/0.5 ML VIAL ONE (19:01)
[2020-05-02] MEDS ORDERED: HEPARIN SOD (PORCINE) 1000 UNIT/ML 10 ML VIAL ONE (19:04)
[2020-05-02] MEDS ORDERED: ACETAMINOPHEN 325 MG TAB PO PRN (19:55)
[2020-05-02] MEDS: NITROGLYCERIN 2% OINTMENT 30GM TUBE EXT SCH (20:24)
[2020-05-02] MEDS: METOPROLOL TARTRATE 25 MG TAB PO SCH (20:25)
[2020-05-02] MEDS ORDERED: HEPARIN SODIUM (PORCINE) 7,500 UNITS in SYRINGE 0 ML SQ SCH (22:00)
[2020-05-03 01:25] LABS: Partial Thromboplastin Ratio 1.3; Partial Thromboplastin Time 37.3 Seconds (21.0-31.0)
[2020-05-03] MEDS ORDERED: HEPARIN IV BOLUS 4,500 UNITS in SYRINGE 0 ML IV ONE (02:00)
[2020-05-03] MEDS: NITROGLYCERIN 2% OINTMENT 30GM TUBE EXT SCH ×2 (02:01→06:14)
[2020-05-03 04:05] LABS: Hematocrit (blood only) 38.8 % (37-47); Hemoglobin 12.5 g/dL (12.0-16.0); Mean Corpuscular Hemoglobin 28.2 pg (25-34); Mean Corpuscular Hgb Conc 32.2 g/dL (32-36); Mean Corpuscular Volume 87.4 fL (80-100); Mean Platelet Volume 9.6 fL (7.4-10.4); Platelet Count 148 K/uL (130-400); RDW Coefficient of Variation 14.2 % (11.5-14.5); RDW Standard Deviation 45.6 fL (36.4-46.3); Red Blood Count 4.44 M/uL (4.2-5.4); White Blood Count 7.71 K/uL (4.8-10.8)
[2020-05-03 04:26] LABS: Troponin I < 0.015 ng/ml (0-0.045)
[2020-05-03 05:12] LABS: BUN Creatinine Ratio 13.1 (10-20); Blood Urea Nitrogen 13 mg/dl (7-18); Calcium 8.5 mg/dl (8.5-10.1); Carbon Dioxide 26 mmol/L (21-32); Chloride 113 mmol/L (98-107); Cholesterol 131 mg/dl (0-200); Creatinine Clr Calc Pharmacy 71.4 ml/min; Est GFR (African American) 67.3; Est GFR (Non-African American) 58.1; Glucose 109 mg/dl (70-99); Potassium 3.8 mmol/L (3.5-5.1); Sodium 146 mmol/L (136-145)
[2020-05-03 05:15] LABS: Chol HDL Ratio 3; HDL Cholesterol 42 mg/dl; LDL Cholesterol Calculated 66 mg/dl; Triglycerides 116 mg/dl (0-150); VLDL Cholesterol 23 mg/dl
--- NOTE | 2020-05-03 07:20 | Electrocardiogram Report ---
Test Reason : Blood Pressure : / mmHG Vent. Rate : 049 BPM Atrial Rate : 049 BPM P-R Int : 150 ms QRS Dur : 084 ms QT Int : 426 ms P-R-T Axes : 025 -16 -20 degrees QTc Int : 384 ms Sinus bradycardia Moderate voltage criteria for LVH, may be normal variant Nonspecific ST abnormality Inferior infarct (cited on or before 27-JUN-2019) Abnormal ECG When compared with ECG of 27-JUN-2019 19:26, Non-specific change in ST segment in Inferior leads Nonspecific T wave abnormality, worse in Anterolateral leads Confirmed by Brian Oh ([id number]) on 05/03/2020 7:20:08 AM Referred By: REFERRED SELF Confirmed By:Brian Oh
--- NOTE | 2020-05-03 07:23 | CT Scan Report ---
CT head/brain wo con CLINICAL HISTORY: Right arm numbness. Possible stroke COMPARISON STUDY: No previous studies for comparison. TECHNIQUE: Axial CT of the brain is performed from the vertex to the skull base. IV contrast was not administered for this examination. A dose lowering technique was utilized adhering to the principles of ALARA. CT DOSE: 537.48 mGy.cm FINDINGS: No intra or extra-axial mass lesions are visualized. There is no CT evidence of acute cortical infarc tion. There is no evidence of midline shift. There is no acute hemorrhage. No calvarial fractures ar e visualized. There are minor white matter hypodensities likely on a small vessel basis. There is no evidence of pathologic ventricular dilatation. There is no evidence of acute sinusitis IMPRESSION: No acute intracranial findings ACT 112: Negative or not required by law. Electronically signed by: Sushil Torre M.D. 05/03/2020 7:22 AM
[2020-05-03 08:02] LABS: Partial Thromboplastin Ratio 3.3
[2020-05-03 08:08] LABS: Partial Thromboplastin Time 90.9 Seconds (21.0-31.0)
[2020-05-03] MEDS ORDERED: cloNIDine HCL 0.1 MG TAB PO SCH (09:00)
[2020-05-03] MEDS ORDERED: CLOPIDOGREL BISULFATE 75 MG TAB PO SCH (09:00)
[2020-05-03] MEDS ORDERED: ATORVASTATIN 40 MG TAB PO SCH (09:00)
[2020-05-03] MEDS ORDERED: ASPIRIN 81 MG ECTAB PO SCH (09:00)
[2020-05-03] MEDS ORDERED: lisinopriL 20 MG TAB PO SCH (09:00)
[2020-05-03] MEDS ORDERED: MULTIVITAMIN TAB PO SCH (09:00)
[2020-05-03] MEDS ORDERED: FUROSEMIDE 20 MG TAB PO SCH (09:00)
[2020-05-03] MEDS ORDERED: PANTOprazole 40 MG TAB PO SCH (09:00)
[2020-05-03] MEDS: METOPROLOL TARTRATE 25 MG TAB PO SCH (09:26)
--- NOTE | 2020-05-03 12:39 | Cardiology Consultation ---
Date of Consultation May 03, 2020 Assessment & Plan (1) Chest pain: -undetectable troponin despite 6 hours of symptoms suggests noncardiac chest pain. -minimal EKG changes of uncertain significance. -would discontinue heparin and topical nitrate. -if no symptoms with ambulation, would discharge home. -has followup scheduled with Dr. Sutherland in approximately 10 days. (2) Coronary artery disease: -NSTEMI back in June 2019. -SHERMAN to the right PDA. -residual nonobstructive disease (3) Hypertension: -adequate control current regimen. (4) HLD (hyperlipidemia): -continue atorvastatin. History of Present Illness Attending Physician: Montana Land MD History of Present Illness Mrs. Man is a 64-year-old female admitted yesterday with a chest pain syndrome. This consultation was ordered to assist in her cardiac management. Of note, the patient typically sees Dr. Sutherland in the outpatient setting. The patient was in her usual state health until yesterday morning at approximately 11:00 a.m.. Patient was walking through her garage with her dog when she had the sudden onset of a "shock sensation her entire body. " She noted weakness and "tingling" in her right arm. The patient sat down on a bench and her symptoms resolved within several seconds. The patient then went into her house and began to notice an "ache" in her left chest. There were no other associated symptoms such as shortness of breath, nausea,, diaphoresis, radiation of the discomfort. The patient became quite concerned as she does have a cardiac history. She opted to proceed to the emergency room for further evaluation. The patient did receive numerous sublingual nitroglycerin tablets without relief. Her initial troponin level is undetectable and her EKG showed some minor T-wave changes. However, she explains that her discomfort resolved spontaneously at approximately 5:00 p.m.. The patient has been under great deal of emotional stress over the last 1-2 months. There are issues within her family regarding her late uncle's estate. The patient's cardiac history began back in June she presented non ST elevation. Cardiac catheterization revealed a culprit lesion in the right PDA in which a drug-eluting stent was placed. Other disease included a 60-70% distal LCx, 20-30% mid LAD, and a 30% mid RCA stenosis. Currently, patient is resting comfortably in bed complaints. Past medical and surgical history 1. Coronary artery disease 2. Non ST-elevation NM - June 2019 3. Right PDA SHERMAN - June 2019 4. Normal systolic function 5. Hypertension 6. Hypercholesterolemia 7. Obesity 8. GERD 9. Spinal stenosis. Social history and lives with Smokes 1 pack of cigarettes daily for last 25 years No alcohol Family history Noncontributory Review of systems A ten point review systems was undertaken and negative except for that described above. Allergies Allergy/AdvReac Type Severity Reaction Status Date / Time No Known Drug Allergies Allergy Unknown Verified 05/02/20 16:46 Home Medications Home Medications Medication Instructions Recorded Confirmed Type lisinopril 20 mg PO QAM 09/01/18 05/02/20 History multivitamin 1 tab PO QAM 09/01/18 05/02/20 History pantoprazole 40 mg PO QAM 09/01/18 05/02/20 History nitroglycerin [Nitrostat] 0.4 mg SUBLINGUAL PRN PRN #30 tab 06/28/19 05/02/20 Rx clopidogrel 75 mg tablet 75 mg PO DAILY #90 tab 07/17/19 05/02/20 Rx atorvastatin 80 mg tablet 80 mg PO DAILY #90 tab 07/30/19 05/02/20 Rx furosemide 20 mg tablet 20 mg PO DAILY #90 tab 07/30/19 05/02/20 Rx metoprolol tartrate 25 mg tablet 25 mg PO BID #60 tab 10/22/19 05/02/20 Rx aspirin 81 mg tablet,delayed 81 mg PO DAILY 10/25/19 05/02/20 History release clonidine HCl 0.1 mg tablet 0.1 mg PO DAILY 10/25/19 05/02/20 History Patient History Social History Smoking Status: Current every day smoker Tobacco Type: Cigarettes Cigarettes Per Day: 10-15; Second Hand Exposure: No; Tobacco Cessation Education Requested by Patient: No Hx Alcohol Use: Yes Alcohol type: beer Hx Substance Use: No Preferred Language: Mongolian Communication Ability: Effective Catalogue Compiler Required: No Beliefs That Will Affect Care: None marital status: Current Living Situation: Spouse and Family Other Information That Helps Us Care for You: No Feels Safe at Home: Yes Safety Concerns: Feels Safe At This Time Physical Exam Physical Exam: In general this is an obese in no acute distress. HEENT exam is negative. Neck is supple with full carotid upstrokes. There are no carotid bruits. Jugular venous pressure is flat at 90. There is no thyromegaly. Cardiovascular exam reveals a regular rhythm with a normal S1 and S2. No S3, S4, or murmurs are noted. Lungs are clear without rales, rhonchi, or wheezes. Abdomen is soft and nontender without bruits. Extremities reveal intact radial artery and posterior tibial pulses bilaterally. There is no peripheral edema. Results & Data ([facility]) Vital Signs (Past 12 Hours) Vital Signs Temp Pulse Pulse Resp BP Pulse Ox 05/03/20 12:11 36.8 C 57 L 18 139/65 96 05/03/20 08:00 45 L 05/03/20 07:02 37.1 C 52 L 16 140/73 95 05/03/20 03:30 37 C 54 L 16 130/76 98 Laboratory Results CBC notes hemoglobin 12.5, hematocrit 30.8, white count 7.7, platelet count of [id number]. Electrolytes note a sodium of 146, potassium 3.8, chloride 113, bicarb 26 BUN 13, creatinine 1.02, glucose of 1 9. three troponin I levels are undetectable less than 0.015. LDL cholesterol 66 with an HDL of 42. Diagnostic Findings EKG notes sinus bradycardia an old inferior NM in minor anterolateral T-wave changes. Chest x-ray shows no acute disease. PG Care Time/CCT Total # of Minutes Spent Total Time Spent with Patient: Total time spent is greater than 50% in coordin ation of care (as documented) at patient's floor/unit and/or counseling patient: Coding Level of Care Code 68215 Office/OBS Consult Lvl 4 Diagnoses Chest pain R07.9 Chest pain type: unspecified Coronary artery disease I25.10 Hypertension I10 HLD (hyperlipidemia) E78.5 (1) Chest pain Chest pain type: unspecified Qualified Code(s): R07.9 - Chest pain, unspecified
--- NOTE | 2020-05-03 12:40 | Hospitalist Progress Note ---
Date of Service May 03, 2020 Assessment & Plan (1) Chest pain: Pt is 64 y/o F with PMH and STEMI s/p SHERMAN to PDA in 06/2019 with residual 60-70% small distal circumflex stenosis, HTN, dyslipidemia, GERD presented to ER with complaint of chest pain today. Patient states walked outside to take her dog outside when she had sudden "wave of shocklike sensation through her body" also described as generalized weakness and lightheadedness, nausea, right arm tingling that resolved with sitting. Walked into house then started with left sided chest aching and pressure. In ER vital stable, initial troponin negative, EKG with t wave inversions anterior lateral leads. CHEST PAIN Acute Coronary Syndrome ruled out possibly related to Uncontrolled Hypertension Troponin negative x 3 EKG: no signs of acute ischemia Echo: pending resolved at the ER after 4 doses of sublingual nitroglycerin BP also improved after consulted Toddler Guide Dr. Bliss no further intervention at this point recommend to increase Lisinopril from 20 to 40mg daily for better BP control recommend to taper Clonidine- take every other day x 7 days, then stop in light of asymptomatic bradycardia noted while admitted (HR 40s-50s) recommend to continue ASA, Plavix, Metoprolol ff up with regular Toddler Guide Dr. Sutherland as scheduled on 05/13/20 ff up with PCP next week (2) Hypertension: management of BP medications as noted above (3) Tingling of right upper extremity: patient reported 10-15 mins RUE tingling episode at initial onset of chest pain resolved no recurrence, no focal deficits CT head: negative for acute CVA patient declines MRI at this time advised to monitor, call PCP or return to ER if with return of symptoms continue ASA, Plavix, Statin (4) GERD (gastroesophageal reflux disease): -Continue PPI DVT Prophylaxis -Heparin given Disposition d/c home today ff up with PCP next week per DC instructions ff up with Cardiology 05/13/20 Admission and Anticipated Discharge Date Admission Date: May 02, 2020 Subjective ff up for chest pain seen resting in bed, comfortable, not in distress states she feels much better overall denies chest pain since 10 pm no SOB, dizziness, palpitations, headache no focal neuro deficits denies other symptoms states she is ready and would like to be discharged today Review of Systems Review of Systems: All systems reviewed & are unremarkable except as noted in HPI & below Physical Exam Physical Exam: General- oriented x 3, not in distress, speaks in sentences with no effort or accessory muscle use Eyes- anicteric Neck- no JVD Lungs- clear breath sounds bilaterally, no rales/wheezes Heart- normal rate, regular rhythm; no murmurs Abdomen- normal bowel sounds, nondistended, soft, nontender Extremities- no pretibial edema, no calf tenderness Neuro- alert, oriented x 3; no gross focal neurologic deficits Skin- warm & dry Results & Data Results & Data ([facility]) Vital Signs (Past 12 Hours) Vital Signs Temp Pulse Pulse Resp BP Pulse Ox 05/03/20 12:11 36.8 C 57 L 18 139/65 96 05/03/20 08:00 45 L 05/03/20 07:02 37.1 C 52 L 16 140/73 95 05/03/20 03:30 37 C 54 L 16 130/76 98 Laboratory Results Laboratory Results - last 24 hr 05/02/20 05/02/20 05/02/20 16:16 16:16 16:16 WBC 6.61 RBC 4.99 Hgb 14.0 Hct 43.2 MCV 86.6 MCH 28.1 MCHC 32.4 RDW Std Deviation 44.6 RDW Coeff of Magan 14.2 Plt Count 175 MPV 9.7 Immature Gran % (Auto) 0.0 Neut % (Auto) 46.3 Lymph % (Auto) 45.2 Rapides % (Auto) 8.3 Eos % (Auto) 0.0 Baso % (Auto) 0.2 Neut # (Auto) 3.06 Lymph # (Auto) 2.99 [place]ides # (Auto) 0.55 Eos # (Auto) 0.00 Baso # (Auto) 0.01 Immature Gran # (Auto) 0.00 PT 10.4 INR 1.0 APTT 25.8 PTT Ratio 0.9 Sodium 145 Potassium 3.6 Chloride 111 H Carbon Dioxide 28 Anion Gap 6.0 BUN 11 Creatinine 1.04 Est Cr Clr Drug Dosing 69.7 Est GFR ( Amer) 65.8 Est GFR (Non-Af Amer) 56.7 BUN/Creatinine Ratio 10.5 Glucose 92 POC Glucose Calcium 8.9 Total Bilirubin 0.4 AST 19 ALT 32 Alkaline Phosphatase 127 H Troponin I < 0.015 Total Protein 6.8 Albumin 3.5 Globulin 3.3 Albumin/Globulin Ratio 1.1 Triglycerides Cholesterol LDL Cholesterol, Calc VLDL Cholesterol, Calc HDL Cholesterol Cholesterol/HDL Ratio Lipase 114 05/02/20 05/03/20 05/03/20 21:56 01:06 03:55 WBC RBC Hgb Hct MCV MCH MCHC RDW Std Deviation RDW Coeff of Magan Plt Count MPV Immature Gran % (Auto) Neut % (Auto) Lymph % (Auto) [place] % (Auto) Eos % (Auto) Baso % (Auto) Neut # (Auto) Lymph # (Auto) [place] # (Auto) Eos # (Auto) Baso # (Auto) Immature Gran # (Auto) PT INR APTT 37.3 H PTT Ratio 1.3 Sodium 146 H Potassium 3.8 Chloride 113 H Carbon Dioxide 26 Anion Gap 7.0 BUN 13 Creatinine 1.02 Est Cr Clr Drug Dosing 71.4 Est GFR ( Amer) 67.3 Est GFR (Non-Af Amer) 58.1 BUN/Creatinine Ratio 13.1 Glucose 109 H POC Glucose Calcium 8.5 Total Bilirubin AST ALT Alkaline Phosphatase Troponin I < 0.015 < 0.015 Total Protein Albumin Globulin Albumin/Globulin Ratio Triglycerides 116 Cholesterol 131 LDL Cholesterol, Calc 66 VLDL Cholesterol, Calc 23 HDL Cholesterol 42 Cholesterol/HDL Ratio 3 Lipase 05/03/20 05/03/20 05/03/20 03:55 07:16 07:31 WBC 7.71 RBC 4.44 Hgb 12.5 Hct 38.8 MCV 87.4 MCH 28.2 MCHC 32.2 RDW Std Deviation 45.6 RDW Coeff of Magan 14.2 Plt Count 148 MPV 9.6 Immature Gran % (Auto) Neut % (Auto) Lymph % (Auto) [place] % (Auto) Eos % (Auto) Baso % (Auto) Neut # (Auto) Lymph # (Auto) [place] # (Auto) Eos # (Auto) Baso # (Auto) Immature Gran # (Auto) PT INR APTT 90.9 H* PTT Ratio 3.3 Sodium Potassium Chloride Carbon Dioxide Anion Gap BUN Creatinine Est Cr Clr Drug Dosing Est GFR ( Amer) Est GFR (Non-Af Amer) BUN/Creatinine Ratio Glucose POC Glucose 97 Calcium Total Bilirubin AST ALT Alkaline Phosphatase Troponin I Total Protein Albumin Globulin Albumin/Globulin Ratio Triglycerides Cholesterol LDL Cholesterol, Calc VLDL Cholesterol, Calc HDL Cholesterol Cholesterol/HDL Ratio Lipase
--- NOTE | 2020-05-03 13:17 | Discharge Summary ---
Date of Service May 03, 2020 Admission HPI Per Admitting Provider Pt is 64 y/o F with PMH and STEMI s/p SHERMAN to PDA in 06/2019 with residual 60-70% small distal circumflex stenosis, HTN, dyslipidemia, GERD presented to ER with complaint of chest pain today. Patient states walked outside to take her dog outside when she had sudden "wave of shocklike sensation through her body" also described as generalized weakness and lightheadedness and states had a little nausea. She also reports was having right arm tingling. Patient states that down and symptoms resolved. She got up and walked into the house and started with left sided chest aching and pressure. Denies any shortness of breath, palpitations, syncope. No prior treatment. Chest discomfort persisted for approximately 2-3 hours until ER evaluation where she was giving 2 sublingual nitro with relief of chest pain. Patient states has experienced chest heaviness with shopping and carrying wood which resolves with rest over the past several months. Denies fever/chills, diaphoresis, V/D/C, GEE, syncope, vision changes, neck pain, orthopnea, cough, sore throat, choking, otalgia, rhinorrhea, abdominal pain, paresthesias, extremity edema, rashes, urinary symptoms. Admission Exam Per Admitting Provider General: no distress, obese Head: normocephalic, atraumatic Eyes: PERRL, conjunctiva non-injected, anicteric ENT: normal inspection external ears, nose, mucous membranes moist Neck: supple, trachea midline, non-tender Lungs: clear, no respiratory distress, no wheezing/rhonchi/rales CV: bradycardia, rate 52, regular rhythm, no murmur appreciated, no pretibial edema; no chest wall tenderness to palpation Abd: normal BS, soft, non-tender Ext: no cyanosis, no calf tenderness Neuro: A&O x 3, no focal deficits noted, normal affect Skin: warm, dry Principal Diagnosis CHEST PAIN, UNCONTROLLED HYPERTENSION Discharge Exam General- oriented x 3, not in distress, speaks in sentences with no effort or accessory muscle use Eyes- anicteric Neck- no JVD Lungs- clear breath sounds bilaterally, no rales/wheezes Heart- normal rate, regular rhythm; no murmurs Abdomen- normal bowel sounds, nondistended, soft, nontender Extremities- no pretibial edema, no calf tenderness Neuro- alert, oriented x 3; no gross focal neurologic deficits Skin- warm & dry Discharge Data Allergies Allergy/AdvReac Type Severity Reaction Status Date / Time No Known Drug Allergies Allergy Unknown Verified 05/02/20 16:46 Consultations 05/02/20 17:26 ED Decision to Admit Stat 05/02/20 19:55 Consult Cardiology Routine Ordered Studies 05/02/20 21:41 CT head/brain wo con Urgent FINDINGS: No intra or extra-axial mass lesions are visualized. There is no CT evidence of acute cortical infarction. There is no evidence of midline shift. There is no acute hemorrhage. No calvarial fractures are visualized. There are minor white matter hypodensities likely on a small vessel basis. There is no evidence of pathologic ventricular dilatation. There is no evidence of acute sinusitis IMPRESSION: No acute intracranial findings Hospital Course (1) Chest pain: CHEST PAIN Acute Coronary Syndrome ruled out possibly related to Uncontrolled Hypertension per admitting provider's notes: Pt is 64 y/o F with PMH and STEMI s/p SHERMAN to PDA in 06/2019 with residual 60-70% small distal circumflex stenosis, HTN, dyslipidemia, GERD presented to ER with complaint of chest pain today. Patient states walked outside to take her dog outside when she had sudden "wave of shocklike sensation through her body" also described as generalized weakness and lightheadedness, nausea, right arm tingling that resolved with sitting. Walked into house then started with left sided chest aching and pressure. In ER vital stable, initial troponin negative, EKG with t wave inversions anterior lateral leads. Troponin negative x 3 EKG: no signs of acute ischemia Echo: pending resolved at the ER after 4 doses of sublingual nitroglycerin BP also improved after nitroglycerin consulted Histologic Technician Dr. lBiss no further intervention at this point recommend to increase Lisinopril from 20 to 40mg daily for better BP control recommend to taper Clonidine- take every other day x 7 days, then stop in light of asymptomatic sinus bradycardia noted while admitted (HR 40s-50s) recommend to continue ASA, Plavix, Metoprolol ff up with regular Histologic Technician Dr. Cullen as scheduled on 05/13/20 ff up with PCP next week (2) Hypertension: management of BP medications as noted above (3) Tingling of right upper extremity: patient reported 10-15 mins RUE tingling episode at initial onset of chest pain resolved no recurrence, no focal deficits CT head: negative for acute CVA patient declines MRI at this time advised to monitor, call PCP or return to ER if with return of symptoms continue ASA, Plavix, Statin (4) GERD (gastroesophageal reflux disease): -Continue PPI DVT Prophylaxis -Heparin given Disposition d/c home today ff up with PCP next week per DC instructions ff up with Cardiology 05/13/20 Total Time Total Time Spent Total Time Spent (In Minutes): 50 minutes Discharge Plan Discharge Items Patient Disposition: Home - Self-Care Reason For Visit: CP Discharge Diagnosis: CHEST PAIN, UNCONTROLLED BLOOD PRESSURE Activity: Resume your previous activity Activity Comment: GRADUALLY TOLERATED Lifting: Wait until after follow-up appointment Exercise/Sports: Wait until after follow-up appointment Driving/Machine Use: NO DRIVING UNTIL RE-EVALUATED AND ALLOWED BY PRIMARY CARE PROVIDER Non-emergency contact: Primary Care Provider Call non-emergency contact if: you have any medication questions and you have a fever Follow-up/Referrals: John Cullen MD [Family Provider] - Chastity Soriano PA-C [Primary Care Provider] - Diet: Heart Healthy Addtl Attending Provider Instructions: YOUR NEW MEDICATION CHANGES INCLUDE: INCREASE LISINOPRIL FROM 20MG TO 40MG DAILY TAKE CLONIDINE EVERY OTHER DAY FOR 1 WEEK THEN STOP. IF CHEST PAIN RECURS, TAKE 1 DOSE OF NITROGLYCERIN UNDER THE TONGUE. IF WITHOUT IMPROVEMENT AFTER 3-5 MINUTES, CALL 9-1-1 IMMEDIATELY. IF WITH IMPROVEMENT, CALL YOUR DOCTOR WELL TO INFORM THEM ABOUT THE EVENT. FOLLOW UP WITH PRIMARY CARE PROVIDER MARTHA GUY ON MAY 08, 2020 AT 8:40AM. FOLLOW UP WITH DR. OWEN CULLEN SCHEDULED ON 05/13/20. Pending Studies at Discharge: Yes Studies:: RESULTS OF ECHOCARDIOGRAM Stand-Alone Forms: My [employer], Smoking Cessation Medications and DC Order Prescriptions: New lisinopril [Zestril] 40 mg Tablet 40 mg PO QAM Qty: 30 RF: 0 Continued atorvastatin 80 mg tablet 80 mg PO DAILY Qty: 90 RF: 3 furosemide 20 mg tablet 20 mg PO DAILY Qty: 90 RF: 3 metoprolol tartrate 25 mg tablet 25 mg PO BID Qty: 60 RF: 5 aspirin 81 mg tablet,delayed release (DR/EC) 81 mg PO DAILY RF: 0 clopidogrel 75 mg tablet 75 mg PO DAILY Qty: 90 RF: 3 multivitamin Tablet 1 tab PO QAM RF: 0 pantoprazole 40 mg Tablet,Delayed Release (Dr/Ec) 40 mg PO QAM RF: 0 nitroglycerin [Nitrostat] 0.4 mg Tablet, Sublingual 0.4 mg sublingual PRN PRN (Reason: chest pain) Qty: 30 RF: 0 Changed clonidine HCl 0.1 mg tablet 0.1 mg PO UD Qty: 0 RF: 0 Discontinued lisinopril 20 mg Tablet 20 mg PO QAM RF: 0 Discharge Orders: Discharge Order (Routine); Ordered 05/03/20 Ordered By: [place] Admission Data Admit Date/Time: 05/02/20 17:57 Attending Provider: [place] Admit Provider: [place] Primary Care Provider: Chastity Soriano Other Providers: Damian Jewell ; Germain Bliss
--- NOTE | 2020-05-03 13:31 | Electrocardiogram Report ---
Test Reason : Blood Pressure : / mmHG Vent. Rate : 042 BPM Atrial Rate : 042 BPM P-R Int : 138 ms QRS Dur : 084 ms QT Int : 516 ms P-R-T Axes : 039 -07 -35 degrees QTc Int : 430 ms Marked sinus bradycardia Inferior infarct (cited on or before 27-JUN-2019) T wave abnormality, consider inferolateral ischemia Abnormal ECG When compared with ECG of 02-MAY-2020 15:14, (unconfirmed) No significant change was found Confirmed by Germain Bliss ([id number]) on 05/03/2020 1:31:09 PM Referred By: REFERRED SELF Confirmed By:Germain Bliss
--- NOTE | 2020-05-03 13:47 | Electrocardiogram Report ---
Test Reason : Blood Pressure : / mmHG Vent. Rate : 049 BPM Atrial Rate : 049 BPM P-R Int : 164 ms QRS Dur : 076 ms QT Int : 440 ms P-R-T Axes : 037 -19 -26 degrees QTc Int : 397 ms Sinus bradycardia Moderate voltage criteria for LVH, may be normal variant Inferior infarct (cited on or before 27-JUN-2019) Anterolateral infarct , age undetermined Abnormal ECG When compared with ECG of 02-MAY-2020 18:28, (unconfirmed) Anterolateral infarct is now Present Confirmed by Germain Bliss ([id number]) on 05/03/2020 1:47:20 PM Referred By: REFERRED SELF Confirmed By:Germain Bliss
--- NOTE | 2020-05-03 14:25 | XCELERA ---
[id number]}___[id number]
[2020-05-04] MEDS ORDERED: lisinopriL 40 MG TAB PO SCH (09:00)
== END 2020-05-03 14:41 | disposition home or self-care (01) ==
LOC: ED 15:03 → 2E 15:03

== ENCOUNTER 2022-10-05 14:24 | Inpatient (IN) ==
--- NOTE | 2022-09-10 11:43 | PAT Medication Instructions ---
Medication Instructions Date of Service September 10, 2022 Home Medications Medication Instructions Recorded nitroglycerin 0.4 mg sublingual 0.4 mg sublingual PRN PRN chest 06/28/19 tablet (Nitrostat) pain #30 tabs pantoprazole 40 mg tablet,delayed 40 mg PO QAM #90 tabs 01/13/21 release lisinopril 40 mg tablet (Zestril) 40 mg PO QAM #90 tabs 01/15/21 carvedilol 6.25 mg tablet (Coreg) 6.25 mg PO BID #180 tabs 04/01/22 multivitamin 1 tab PO QAM nitroglycerin 0.4 mg sublingual tablet (Nitrostat) 0.4 mg sublingual PRN PRN chest pain aspirin 81 mg tablet,delayed release 81 mg PO QAM pantoprazole 40 mg tablet,delayed release 40 mg PO QAM lisinopril 40 mg tablet (Zestril) 40 mg PO QAM carvedilol 6.25 mg tablet (Coreg) 6.25 mg PO BID atorvastatin 80 mg tablet 80 mg PO QAM cetirizine 10 mg tablet 10 mg PO QAM cyanocobalamin (vitamin B-12) 2 tab PO QAM furosemide 20 mg tablet 20 mg PO QAM ibuprofen 200 mg tablet (Advil) 200 - 400 mg PO Q6H PRN Pain naproxen 500 mg tablet 500 mg PO BID PRN Pain Continue as directed nitroglycerin 0.4 mg sublingual tablet (Nitrostat) 0.4 mg sublingual PRN PRN chest pain (if needed) ASK your surgeon for instructions ibuprofen 200 mg tablet (Advil) 200 - 400 mg PO Q6H PRN Pain naproxen 500 mg tablet 500 mg PO BID PRN Pain DO NOT take the morning of surgery multivitamin 1 tab PO QAM lisinopril 40 mg tablet (Zestril) 40 mg PO QAM cetirizine 10 mg tablet 10 mg PO QAM cyanocobalamin (vitamin B-12) 2 tab PO QAM furosemide 20 mg tablet 20 mg PO QAM Take morning of surgery With a small sip of water, OTHERWISE NOTHING TO EAT OR DRINK AFTER MIDNIGHT: aspirin 81 mg tablet,delayed release 81 mg PO QAM (unless surgeon directed otherwise) pantoprazole 40 mg tablet,delayed release 40 mg PO QAM carvedilol 6.25 mg tablet (Coreg) 6.25 mg PO BID atorvastatin 80 mg tablet 80 mg PO QAM Take evening before surgery carvedilol 6.25 mg tablet (Coreg) 6.25 mg PO BID Other Notes If you have any questions please call us at [phone] or [phone] or [phone] or [phone]
--- NOTE | 2022-09-15 09:17 | Anesthesiology Consultation ---
Date of Service September 15, 2022 Assessment & Plan (1) Encounter for pre-operative examination: History Surgery Operation Date: 10/05/22 10:05 Proposed Procedures p L4-L5 Decompression and L3-L5 Fusion, L4-L5 Hardware Removal, Spinal Cord Monitoring - Juanito Burnham DO Height/Weight Height: 5 ft 4 in Weight: 127.006 kg Allergies Allergy/AdvReac Type Severity Reaction Status Date / Time potassium chloride AdvReac Intermediate diarrhea Verified 09/15/22 09:14 cefuroxime Allergy Intermediate nausea and Uncoded 09/15/22 09:14 vomiting shrimp Allergy Unknown Uncoded 09/15/22 09:14 azithromycin Allergy diarrhea Uncoded 09/15/22 09:14 vioxx Allergy edema Uncoded 09/15/22 09:14 ciprofloxacin AdvReac Unknown Uncoded 09/15/22 09:14 Medications Home Medications Medication Instructions Recorded Confirmed Last Taken multivitamin 1 tab PO QAM 09/01/18 09/10/22 05/02/20 nitroglycerin 0.4 mg sublingual 0.4 mg sublingual PRN PRN chest 06/28/19 09/10/22 05/02/20 tablet (Nitrostat) pain #30 tabs aspirin 81 mg tablet,delayed 81 mg PO QAM 10/25/19 09/10/22 05/02/20 release pantoprazole 40 mg tablet,delayed 40 mg PO QAM #90 tabs 01/13/21 09/10/22 Unknown release lisinopril 40 mg tablet (Zestril) 40 mg PO QAM #90 tabs 01/15/21 09/10/22 Unknown carvedilol 6.25 mg tablet (Coreg) 6.25 mg PO BID #180 tabs 04/01/22 09/10/22 Unknown atorvastatin 80 mg tablet 80 mg PO QAM 09/10/22 09/10/22 Unknown cetirizine 10 mg tablet 10 mg PO QAM 09/10/22 09/10/22 Unknown cyanocobalamin (vitamin B-12) 2 tab PO QAM 09/10/22 09/10/22 Unknown furosemide 20 mg tablet 20 mg PO QAM 09/10/22 09/10/22 Unknown ibuprofen 200 mg tablet (Advil) 200 - 400 mg PO Q6H PRN Pain 09/10/22 09/10/22 Unknown naproxen 500 mg tablet 500 mg PO BID PRN Pain 09/10/22 09/10/22 Unknown Past Medical History Medical History (Updated 09/15/22 @ 09:11 by Deb Hope PA-C) Degenerative disc disease GERD (gastroesophageal reflux disease) History of chronic back pain History of COVID-19 10/2021, " tested positive", not hosp; fever, SOB>resolved History of urinary incontinence "dribbles sometimes" HLD (hyperlipidemia) Hx of coronary artery disease s/p 1 stent 2018 Hypertension Morbid obesity Myocardial Infarction 06/27/2019>cardiac cath w/ stent; f/u tri khan Patient denies h/o stroke, seizures, heart failure, DM, HTN, blood clots or blood transfusions. Past Family History Family History Father Family history of diabetes mellitus Past Surgical History Surgical History History of arthroscopy left KNEE History of back surgery Lumbar discectomy 09/18/18 Lumbar decompression and fusion at [facility] by Dr Burnham History of cardiac cath >had SC>x1 stent, resolut elisha; f/u tri khan History of colonoscopy History of hysterectomy History of tonsillectomy History of total knee replacement RT Social History Smoking Status: Current every day smoker tobacco type: cigarettes Smoking cigarettes per day: 6 Do You Dip or Chew Tobacco: No Hx Alcohol Use: Yes Alcohol type: beer and wine alcohol intake frequency: holidays/special occasions only Hx Substance Use: No substance use type: does not use
--- NOTE | 2022-09-24 12:04 | Anesthesiology Consultation ---
Date of Service September 24, 2022 Assessment & Plan (1) Encounter for pre-operative examination: - pre-op cardiology clearance 09/28/22. - URI: Pt states was recently Rx Augmentin, began Rx 2 days ago with improvement. Negative COVID 09/14/22. End expiration wheezing noted throughout, pt advised to f/u with PCP-she states symptoms are improving since office visit. Awaiting response to optimization form from PCP given change in respiratory a uscultation upon review to 09/22/22 [facility]. Pt was advised to call office if symptoms are not fully resolved 1-2 days before surgery. - PCP pre-op eval 09/22/22 [facility]: "...preoperative evaluation for lumbar discectomy and fusion set for 10/05/22. She has a cardiovascular history that includes MN with stent placement in 2018, hypertension, hyperlipidemia, CAD, LVH. She follows with cardiology Dr. Sutherland at [facility] and reports she has already received cardiac clearance from him. She is able to complete 4 METS of activity without chest pain or SOB...Getting over sinusitis and is improving. Started Augmentin yesterday, which is helping a lot with symptoms. Finished prednisone this AM. Still with a bit of a cough, but no longer with any chest tightness.. .Lungs: chest symmetric with normal AP diameter, no chest deformities noted, no chest wall tenderness, lungs clear to auscultation...Pt has revised cardiac index score of One Risk Factor- 1.0% (95% CI: 0.5-1.4) for the surgery scheduled...Patient reports she has already received cardiac clearance from Dr. Sutherland. Sinusitis improving, she is aware she needs to be symptom-free for surge ry to proceed. Per my evaluation, the patient has been medically optimized for anesthesia..." - cardiology 05/20/22 [place]: "...coronary artery disease--NSTEMI post PCI to acute on chronic right PDA occlusion with single SHERMAN 06/2019--Residual 60-70% small distal circumflex stenosis. Hypertension--relatively controlled. GERD...Patient doing fairly well from a cardiac standpoint. No recent anginal type symptoms. On exam appears well perfused without signs of heart failure or new PVD..." Chart Review Chart Review: Pending: Refer to Additional Notes / Consult section and Patient seen in Pre Admission Testing Teaching & Discussion Pre-Anesthesia Teaching/Discussion Notes: Instructed NPO after midnight before surgery, except medications with 15 cc of water. Medication instructions provided according to the PAT guidelines. History Surgery Operation Date: 10/05/22 10:05 Proposed Procedures p L4-L5 Decompression and L3-L5 Fusion, L4-L5 Hardware Removal, Spinal Cord Monitoring - Juanito Burnham, Height/Weight Height: 5 ft 4 in Weight: 127.006 kg Allergies Allergy/AdvReac Type Severity Reaction Status Date / Time potassium chloride AdvReac Intermediate diarrhea Verified 09/15/22 09:14 cefuroxime Allergy Intermediate nausea and Uncoded 09/15/22 09:14 vomiting shrimp Allergy Unknown Uncoded 09/24/22 12:34 azithromycin Allergy diarrhea Uncoded 09/15/22 09:14 vioxx Allergy edema Uncoded 09/15/22 09:14 ciprofloxacin AdvReac Unknown Uncoded 09/15/22 09:14 Medications Home Medications Medication Instructions Recorded Confirmed Last Taken multivitamin 1 tab PO QAM 09/01/18 09/10/22 05/02/20 nitroglycerin 0.4 mg sublingual 0.4 mg sublingual PRN PRN chest 06/28/19 09/10/22 05/02/20 tablet (Nitrostat) pain #30 tabs aspirin 81 mg tablet,delayed 81 mg PO QAM 10/25/19 09/10/22 05/02/20 release pantoprazole 40 mg tablet,delayed 40 mg PO QAM #90 tabs 01/13/21 09/10/22 Unknown release lisinopril 40 mg tablet (Zestril) 40 mg PO QAM #90 tabs 01/15/21 09/10/22 Unknown carvedilol 6.25 mg tablet (Coreg) 6.25 mg PO BID #180 tabs 04/01/22 09/10/22 Unknown atorvastatin 80 mg tablet 80 mg PO QAM 09/10/22 09/10/22 Unknown cetirizine 10 mg tablet 10 mg PO QAM 09/10/22 09/10/22 Unknown cyanocobalamin (vitamin B-12) 2 tab PO QAM 09/10/22 09/10/22 Unknown furosemide 20 mg tablet 20 mg PO QAM 09/10/22 09/10/22 Unknown ibuprofen 200 mg tablet (Advil) 200 - 400 mg PO Q6H PRN Pain 09/10/22 09/10/22 Unknown naproxen 500 mg tablet 500 mg PO BID PRN Pain 09/10/22 09/10/22 Unknown Past Medical History Medical History (Updated 09/24/22 @ 12:35 by Deb Hope PA-C) Degenerative disc disease GERD (gastroesophageal reflux disease) controlled, stable per pt History of chronic back pain History of COVID-19 10/2021, " tested positive", not hosp; fever, SOB>resolved History of urinary incontinence "dribbles sometimes" HLD (hyperlipidemia) Hx of coronary artery disease NSTEMI post PCI to acute on chronic right PDA occlusion with single SHERMAN 06/2019--Residual 60-70% small distal circumflex stenosis, follows with [place] cardiology Hypertension controlled, stable per pt Morbid obesity Myocardial Infarction 06/27/2019>cardiac cath w/ stent; f/u tri khan Patient denies h/o stroke, seizures, heart failure, DM, blood clots or blood transfusions. Exercise / Class Metabolic Activity II 4-5 Yardwork/Stairs/Walk up hill (denies CP or SOB with 1 FOS) Past Family History Family History Father Family history of diabetes mellitus Past Surgical History Surgical History History of arthroscopy left KNEE History of back surgery Lumbar discectomy 09/18/18 Lumbar decompression and fusion at [facility] by Dr Burnham History of cardiac cath >had [place]>x1 stent, resolut elsiha; f/u tri khan History of colonoscopy History of hysterectomy History of tonsillectomy History of total knee replacement RT Past Anesthesia History No Hx of Anesthesia Complications and No Family Hx of Anesthesia Complications History of PONV No Hx of PONV and No Hx of Motion Sickness Social History Smoking Status: Current every day smoker (advised) tobacco type: cigarettes Smoking cigarettes per day: 6 Do You Dip or Chew Tobacco: No Hx Alcohol Use: Yes Alcohol type: beer and wine alcohol intake frequency: holidays/special occasions only Hx Substance Use: No substance use type: does not use Review of Systems Snoring, denies witnessed apneas. Patient denies chest pain, shortness of breath, dyspnea on exertion, fever, chills, cough, wheezing, or palpitations. Physical Exam Vital Signs Vitals BP 126/78 P 54 TEMP 99 SP02 97% on RA RESP 18 Physical Resting comfortably in chair in NAD, speaking clearly and coherently in full sentences without difficulty Full cervical extension range of motion without pain TMD <3 finger breadths Mallampati Score 3 Dentition: intact, removable partial upper front; denies chipped or loose teeth, caps/crowns, implants or bridges Lungs: normal respiratory effort. Good air movement, end expiration wheezing noted throughout lung chase, no rales or rhonchi Cardiac: regular rate and rhythm, no murmurs noted Carotid arteries: negative bruit bilat Lab Results Anesthesia Preop Results Results Anesthesia Widget: WBC 7.69 K/ul (4.8-10.8) 09/24/22 Hgb 13.5 g/dl (12.0-16.0) 09/24/22 Hct 41.9 % (34.1-44.9) 09/24/22 Plt 224 K/uL (130-400) 09/24/22 Na 144 mmol/L (136-145) 09/24/22 K 3.5 mmol/L (3.5-5.1) 09/24/22 Cl 106 mmol/L (98-107) 09/24/22 CO2 33 mmol/L (21-32) H 09/24/22 BUN 12 mg/dl (6-23) 09/24/22 Creat 0.81 mg/dl (0.6-1.2) 09/24/22 Glucose Level 89 mg/dl (70-99(Fasting)) 09/24/22 PT 10.3 Seconds (9.0-12.0) 09/24/22 PTT 24.0 Seconds (21.0-31.0) 09/24/22 INR 1.0 (0.9-1.1) 09/24/22 Urine Color Yellow 09/24/22 Urine Appearance Clear (Clear) 09/24/22 Urine pH 8.0 (4.5-7.5) H 09/24/22 Urine Specific [place] 1.010 (1.000-1.030) 09/24/22 Urine Protein Negative (Negative) 09/24/22 Urine Glucose (UA) Negative (Negative) 09/24/22 Urine Ketones Negative (Negative) 09/24/22 Urine Blood Negative (Negative) 09/24/22 Urine Nitrite Negative (Negative) 09/24/22 Urine Bilirubin Negative (Negative) 09/24/22 Urine Urobilinogen Negative (Negative) 09/24/22 Urine Leukocyte Esterase Negative (Negative) 09/24/22 Blood Type O Positive 09/24/22 Antibody Screen NEGATIVE 09/24/22 Testing Electrocardiogram Date: 09/24/22 Sinus bradycardia, rate 49 bpm Inferior infarct cited on or before 06/27/19 T wave abnormality, consider anterolateral ischemia Chest X-Ray Date: 09/24/22 No lines and tubes are seen. Cardiomegaly is noted. The aortic arch is calcified. The lungs are clear. No evidence of pleural effusion or pneumothorax. IMPRESSION: No acute chest disease Echocardiogram Date: 06/28/19 EF 55-60% Severe hypokinesis of inferior wall, apical septum. Mild inferolateral hypokinesis No significant valvular pathology Moderate cLVH Cardiac Catheterization Date: 06/27/19 LM -Short, moderate caliber LAD -moderate caliber vessel, proximal luminal irregularities, 20 to 30% mid segment disease, distal luminal irregularities. Moderate caliber bifurcating second diagonal without significant disease. LAD provides left to right collaterals to right PDA. Circumflex -small caliber vessel, 60 to 70% distal disease prior to small left OM 2 RCA -large caliber vessel, dominant, proximal luminal irregularities, 30% mid segment disease. 100% acute on chronic ostial right PDA. Large right PLB with luminal irregularities 1. Acute on chronic 100% ostial PDA occlusion with [id number] collaterals from LAD 2. Moderate to severe single-vessel non-culprit coronary artery disease-60 to 70% stenosis in distal small circumflex 3. Elevated intracardiac filling pressure 4. Successful PCI of ostial RCA with single drug-eluting stent (2.5 x 22 mm Elisha). COVID-19 Risk Screen Screening Information COVID-19 Screen Date: 09/24/22 Exposure 21 Days Family/Household +COVID Last 21 Days: No Exposure 10 Days Any COVID Exposure Last 10 Days: No Symptoms Last 10 Days Experienced COVID Sx Last 10 Days: No + COVID 0-90 Days COVID + in Last 0-90 Days: No
[~2022-10-05 14:24] MED LIST changes: +ACETAMINOPHEN 500 MG TAB PO SCH; +CeleBREX 200 MG CAP PO SCH; +GABAPENTIN 300 MG CAP PO SCH; +LR 15ML/HR IV SCH; -TICAGRELOR 90 MG TAB PO SCH
[2022-10-05] MEDS ORDERED: ATROPINE SULFATE 0.1 MG/ML 10ML SYR IV PRN (15:34)
[2022-10-05] MEDS ORDERED: ONDANSETRON INJ 2 MG/ML 2 ML VIAL IV PRN ×2 (15:34→20:15)
[2022-10-05] MEDS ORDERED: HYDROmorphone INJ 1 MG/ML SYRINGE IV PRN ×2 (15:34→20:15)
[2022-10-05] MEDS ORDERED: ePHEDrine sulfate 50 MG/ML AMP IV PRN (15:34)
[2022-10-05] MEDS ORDERED: fentaNYL citrate 100 MCG/2 ML VIAL IV PRN (15:34)
[2022-10-05] MEDS ORDERED: fentaNYL citrate 100 MCG/2 ML VIAL ONE (15:48)
[2022-10-05] MEDS ORDERED: HYDROmorphone INJ 2 MG/ML SYR/VIAL ONE ×2 (15:48→16:09)
[2022-10-05] MEDS ORDERED: MIDAZOLAM HCL 1 MG/ML 2ML VIAL ONE (15:48)
[2022-10-05] MEDS ORDERED: LIDOCAINE 2% MPF LOCAL 5 ML VIAL INFIL ONE (15:49)
[2022-10-05] MEDS ORDERED: PROPOFOL IV EMULSION 10 MG/ML 20 ML VIAL IV ONE (15:49)
[2022-10-05] MEDS ORDERED: ROCURONIUM BROMIDE 10 MG/ML 5 ML VIAL IV ONE (15:49)
[2022-10-05] MEDS ORDERED: DEXAMETHASONE SOD INJ 4 MG/ML VIAL ONE (15:49)
[2022-10-05] MEDS ORDERED: ONDANSETRON INJ 2 MG/ML 2 ML VIAL ONE (15:49)
--- NOTE | 2022-10-05 15:53 | History & Physical Bridge Note ---
Date of Service October 05, 2022 History & Physical Bridge Note I have examined the patient, reviewed the History & Physical and in the interval since the performance of the History & Physical I have noted the following changes of clinical significance: no changes noted
--- NOTE | 2022-10-05 15:54 | History & Physical Report ---
Date of Service October 05, 2022 Assessment & Plan (1) Neurogenic claudication due to lumbar spinal stenosis: Plan: L3-L4 decompression and L3-5 fusion, L4-L5 hardware removal History of Present Illness Chief Complaint: Back and leg pain Primary Care Provider: Rico Tidwell MD This is a 66-year-old female known to me the presents with chronic persistent back and leg pain. Failing extensive course of nonoperative care is here for surgical invention. Allergies Allergy/AdvReac Type Severity Reaction Status Date / Time potassium chloride AdvReac Intermediate diarrhea Verified 10/05/22 14:55 cefuroxime Allergy Intermediate nausea and Uncoded 10/05/22 14:55 vomiting shrimp Allergy Unknown Uncoded 10/05/22 14:55 azithromycin Allergy diarrhea Uncoded 10/05/22 14:55 vioxx Allergy edema Uncoded 10/05/22 14:55 ciprofloxacin AdvReac Unknown Uncoded 10/05/22 14:55 Home Medications Medication Instructions Recorded Confirmed Type multivitamin 1 tab PO QAM 09/01/18 10/05/22 History nitroglycerin 0.4 mg sublingual 0.4 mg sublingual PRN PRN chest 06/28/19 10/05/22 Rx tablet (Nitrostat) pain #30 tabs aspirin 81 mg tablet,delayed 81 mg PO QAM 10/25/19 10/05/22 History release pantoprazole 40 mg tablet,delayed 40 mg PO QAM #90 tabs 01/13/21 10/05/22 Rx release lisinopril 40 mg tablet (Zestril) 40 mg PO QAM #90 tabs 01/15/21 10/05/22 Rx carvedilol 6.25 mg tablet (Coreg) 6.25 mg PO BID #180 tabs 04/01/22 10/05/22 Rx atorvastatin 80 mg tablet 80 mg PO QAM 09/10/22 10/05/22 History cetirizine 10 mg tablet 10 mg PO QAM 09/10/22 10/05/22 History cyanocobalamin (vitamin B-12) 2 tab PO QAM 09/10/22 10/05/22 History furosemide 20 mg tablet 20 mg PO QAM 09/10/22 10/05/22 History ibuprofen 200 mg tablet (Advil) 200 - 400 mg PO Q6H PRN Pain 09/10/22 10/05/22 History naproxen 500 mg tablet 500 mg PO BID PRN Pain 09/10/22 10/05/22 History Past Med/Surg History Medical History (Updated 09/24/22 @ 12:35 by Deb Hope PA-C) Degenerative disc disease GERD (gastroesophageal reflux disease) controlled, stable per pt History of chronic back pain History of COVID-19 10/2021, " tested positive", not hosp; fever, SOB>resolved History of urinary incontinence "dribbles sometimes" HLD (hyperlipidemia) Hx of coronary artery disease NSTEMI post PCI to acute on chronic right PDA occlusion with single SHERMAN 06/2019--Residual 60-70% small distal circumflex stenosis, follows with [place] cardiology Hypertension controlled, stable per pt Morbid obesity Myocardial Infarction 06/27/2019>cardiac cath w stent; f/u tri khan Surgical History History of arthroscopy left KNEE History of back surgery Lumbar discectomy 09/18/18 Lumbar decompression and fusion at [facility] by Dr Burnham History of cardiac cath >had [place]>x1 stent, resolut elisha; f/u tri khan History of colonoscopy History of hysterectomy History of tonsillectomy History of total knee replacement RT Family History Father Family history of diabetes mellitus Social History Smoking Status: Never smoker Tobacco Type: Cigarettes Cigarettes Per Day: 10-15; Second Hand Exposure: No; Do You Dip or Chew Tobacco: No; Tobacco Cessation Education Requested by Patient: No Hx Alcohol Use: Yes Alcohol type: beer Hx Substance Use: No Preferred Language: Estonian Communication Ability: Effective Manager Diabetes Required: No Beliefs That Will Affect Care: None marital status: Current Living Situation: Spouse and Family Other Information That Helps Us Care for You: No Feels Safe at Home: Yes Safety Concerns: Feels Safe At This Time Assistive Devices: None Assistive Devices Comment: cane prn Physical Exam Physical Exam: Patient is alert and oriented Heart regular rhythm Lungs clear Results & Data Results & Data ([facility]) Vital Signs (Past 12 Hours) Vital Signs Temp Pulse Resp BP Pulse Ox O2 Del Method 10/05/22 14:59 37.2 C 57 L 20 166/87 H 93 Room Air
[2022-10-05] MEDS ORDERED: BUPIVACAINE/EPINEPHRINE 0.25% 1:200,000 30 ML VIAL ONE (16:08)
[2022-10-05] MEDS ORDERED: ceFAZolin 330 MG/ML 1 GM VIAL ONE (16:08)
[2022-10-05] MEDS ORDERED: FLOSEAL HEMOSTATIC MATRIX 10ML TOP ONE (17:05)
--- NOTE | 2022-10-05 18:11 | Operative Report ---
Post Operative Report Pre & Post Diagnosis Operation Date: 10/05/22 09:35 Pre-Op Diagnosis: Neurogenic Claudication due to Lumbar Spinal Stenosis Morbid obesity Post-Op Diagnosis: Neurogenic Claudication due to Lumbar Spinal Stenosis I identified the patient and participated in the time-out.: Yes Procedure Operation Date: 10/05/22 09:35 Actual Procedures #1 removal of posterior instrumentation L4-5. #2 exploration of fusion L4-5 per #3 decompression bilateral medial facetectomies foraminotomies L3-L4. #4 posterior spinal fusion L3-L4. #5 placement posterior instrumentation L3-L5. #6 interbody fusion L3-L4. #7 placement of Spira 14 x 26 mm cage L3-L4. #8 placement locally harvested morselized autograft in the posterior gutters. #9 placement of I factor model V toss interbody space and posterior lateral gutters. Surgeon Juanito Burnham, Cashier Checker Sona Shi Estimated Blood Loss 100 Findings See Below Patient is 5 foot 4 weighing over 109 in excess of 47. The patient's body hab itus did create significant technical difficulty required deepest retractors and longer instruments in order to perform her procedure. This had at least 50% increased operative time. Specimens None Indications This is a 66-year-old female with diagnosis after failed course of nonoperative care is here for surgical invention. Description of Procedure Patient was met with identified informed consent obtained. Patient was then taken to the operative suite underwent ablation placed in a prone position on the Timmy table on top of the Fermin frame. All bony prominences well-padded eyes inspected to ensure no external pressure placed upon. This point the lumbar spine was prepped and draped in normal sterile fashion. Sharp dissection with the assistance of Bovie cautery was performed down to and exposing the lamina transverse processes of L3 and instrumentation at L4-L5 bilaterally. I then proceeded move the hardware bilaterally explore the fusion mass noting it to be mature and intact. Informed complete laminectomy of L3 including lis ateral medial facetectomies and foraminotomies addressing severe spinal stenosis. Pedicle screws were then placed at L3 L4-5 bilaterally with assistance of fluoroscopy and the properly sized kaiden placed. By way of entrance discectomy of L3-4 was performed endplates curetted to subcortically 26 mm spiral cage filled with I factor tapped into position. Rods were then locked in final position bilaterally. The transverse processes of L3 and L4 burred to subcortically bone. I factor combined with V toss and locally harvested morselized autograft placed in the posterior gutters. 15 round OLINDA drain inserted. The incision was then closed with 1 Vicryl the fascia 2-0 Vicryl subcutaneously and 4 Monocryl for final skin closure. Steri-Strips dressings placed. Patient waken taken to PACU in stable condition. Please note spinal cord monitoring was utilized at the procedure no changes noted. Lastly Sona Shi was present at the entire surgeon while the patient positioning complex portions of the surgery and final skin closure. I attest to the content of the Intraoperative Record and any orders documented therein. Any exceptions are noted below.
[2022-10-05] MEDS ORDERED: SUGAMMADEX SODIUM 200 MG/2 ML VIAL IV ONE (18:12)
--- NOTE | 2022-10-05 18:55 | Fluoroscopy Report ---
FL lumbar spine 2-3V CLINICAL HISTORY: DECOMP L3-L5 FUSION COMPARISON STUDY: Lumbar spine CT July 08, 2022. FLUOROSCOPY TIME: 10 seconds. FLUOROSCOPIC IMAGES: 2 FINDINGS: Interval L3-L4 discectomy with interbody spacer placement is noted. Previous L4-L5 discecto my with interbody spacer placement is noted. Posterior decompression is noted with bilateral pedicle screws at the L3, L4 and L5 levels. IMPRESSION: Fluoroscopy provided during L3-L4 discectomy and L3-L5 posterior decompression and bilat eral pedicle screw fusion. ACT 112: Negative or not required by law. Electronically signed by: Jeronimo Giraldo M.D. 10/05/2022 6:54 PM
--- NOTE | 2022-10-05 19:41 | Anesthesiology Progress Note ---
Date of Service October 05, 2022 Anesthesia Post Procedure Vital Signs Vital Signs: Temp Pulse Pulse Resp BP Pulse Ox O2 Del Method 10/05/22 19:05 55 L 13 143/85 H 98 Oxymask 10/05/22 18:55 71 19 153/90 H 95 Oxymask 10/05/22 19:15 97.5 F L 47 L 19 164/82 H 95 Oxymask 10/05/22 18:45 67 18 148/90 H 86 L Oxymask 10/05/22 18:39 97.0 F L 69 12 184/87 H 88 L Oxymask 10/05/22 14:59 99.0 F 57 L 20 166/87 H 93 Room Air O2 Flow Rate 10/05/22 19:05 13 10/05/22 18:55 13 10/05/22 19:15 6 10/05/22 18:45 13 10/05/22 18:39 13 10/05/22 14:59 Pain Intensity Left Lower Back: Pain Intensity: 0 Transfer of Care Handoff Completed per policy Notes Mental Status: alert / awake / arousable and participated in evaluation Patient Amnestic to Procedure: Yes Nausea / Vomiting: adequately controlled Pain: adequately controlled Airway Patency, RR, SpO2: stable & adequate BP & HR: stable & adequate Hydration State: stable & adequate Anesthetic Complications: no major complications apparent and Pt Satisfied with anesthetic care
[2022-10-05] MEDS: LACTATED RINGER'S 1,000 ML IV SCH (20:05)
[2022-10-05] MEDS ORDERED: ONDANSETRON 4 MG OD TAB PO PRN (20:15)
[2022-10-05] MEDS ORDERED: METOCLOPRAMIDE HCL INJ 5 MG/ML 2 ML VIAL IV PRN (20:15)
[2022-10-05] MEDS ORDERED: NITROGLYCERIN SL 0.4 MG/TAB TAB SL PRN (20:15)
[2022-10-05] MEDS ORDERED: hydrOXYzine HCl 25 MG TAB PO PRN (20:15)
[2022-10-05] MEDS ORDERED: SOD PHOSPHATE/SOD BIPHOSPHATE ENEMA 132 ML BTL PR PRN (20:15)
[2022-10-05] MEDS ORDERED: LORazepam 0.5 MG TAB PO PRN (20:15)
[2022-10-05] MEDS ORDERED: MAGNESIUM HYDROXIDE SUSP 30 ML UDC PO PRN (20:15)
[2022-10-05] MEDS ORDERED: LORazepam 2 MG/1 ML VIAL IV PRN (20:15)
[2022-10-05] MEDS ORDERED: FAMOTIDINE 20 MG TAB PO PRN (20:15)
[2022-10-05] MEDS ORDERED: NALOXONE HCL 0.4 MG/1 ML VIAL/CARP IV PRN (20:15)
[2022-10-05] MEDS ORDERED: DO NOT ADMINISTER PNEUMOCOCCAL VACCINE PRN (20:15)
[2022-10-05] MEDS ORDERED: DO NOT ADMINISTER FLU VACCINE PRN (20:15)
[2022-10-05] MEDS ORDERED: PROMETHAZINE HCL 12.5 MG in SODIUM CHLORIDE 0.9% 50 ML IV PRN (20:15)
[2022-10-05] MEDS ORDERED: bisacodyL 10 MG SUPP PR PRN (20:15)
[2022-10-05] MEDS ORDERED: traMADol HCL 50 MG TABLET PO PRN (20:15)
[2022-10-05] MEDS ORDERED: ALUMINUM/MAGNESIUM SUSP 30 ML UDC PO PRN (20:15)
[2022-10-05] MEDS ORDERED: ACETAMINOPHEN 500 MG TAB PO PRN (20:15)
[2022-10-05] MEDS ORDERED: ACETAMINOPHEN 1,000 MG/100 ML VIAL IV PRN (20:15)
[2022-10-05] MEDS ORDERED: HYDROmorphone INJ 0.5 MG/0.5 ML SYR IV PRN (20:15)
[2022-10-05] MEDS ORDERED: diphenhydrAMINE Capsule 25 MG CAP PO PRN (20:15)
[2022-10-05] MEDS: DOCUSATE SODIUM/SENNA 50/8.6MG TAB PO SCH (21:55)
[2022-10-05] MEDS: carvediloL 6.25 MG TAB PO SCH (21:55)
--- NOTE | 2022-10-05 22:06 | Consultation ---
Date of Consultation October 05, 2022 Assessment & Plan (1) Neurogenic claudication due to lumbar spinal stenosis: Plan Neurogenic claudication due to lumbar spinal stenosis Lumbar spine decompression and fusion by Dr. Burnham on 10/05/2022 Patient reports improvement in her low back pain and left lower extremity numbness. Patient reports feeling better, is tolerating liquid diet. Labs in a.m., previous labs reviewed. Watch out for blood loss anemia. Patient advised to continue with incentive spirometer. SCDs in place. Other chronic medical conditions: As mentioned in HPI ---> continue home meds as able. DVT prophylaxis: SCDs Disposition: PT/OT, CM to assist with DC planning. 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 Burnham on 10/05/2022 due to her low back pain and numbness in her left lower extremity. She is a medical consult. Patient was seen and examined at bedside, patient was eating her liquid diet/dinner after the surgery, was oriented, this sitting up in bed with back support, denies any fever or chills or any acute problems in the recent past, reports improvement in her low back pain and left lower extremity numbness. Patient reports feeling better. Medications reviewed with the patient. Allergies Allergy/AdvReac Type Severity Reaction Status Date / Time potassium chloride AdvReac Intermediate diarrhea Verified 10/05/22 14:55 cefuroxime Allergy Intermediate nausea and Uncoded 10/05/22 14:55 vomiting shrimp Allergy Unknown Uncoded 10/05/22 14:55 azithromycin Allergy diarrhea Uncoded 10/05/22 14:55 vioxx Allergy edema Uncoded 10/05/22 14:55 ciprofloxacin AdvReac Unknown Uncoded 10/05/22 14:55 Home Medications Medication Instructions Recorded Confirmed Type multivitamin 1 tab PO QAM 09/01/18 10/05/22 History nitroglycerin 0.4 mg sublingual 0.4 mg sublingual PRN PRN chest 06/28/19 10/05/22 Rx tablet (Nitrostat) pain #30 tabs aspirin 81 mg tablet,delayed 81 mg PO QAM 10/25/19 10/05/22 History release pantoprazole 40 mg tablet,delayed 40 mg PO QAM #90 tabs 01/13/21 10/05/22 Rx release lisinopril 40 mg tablet (Zestril) 40 mg PO QAM #90 tabs 01/15/21 10/05/22 Rx carvedilol 6.25 mg tablet (Coreg) 6.25 mg PO BID #180 tabs 04/01/22 10/05/22 Rx atorvastatin 80 mg tablet 80 mg PO QAM 09/10/22 10/05/22 History cetirizine 10 mg tablet 10 mg PO QAM 09/10/22 10/05/22 History cyanocobalamin (vitamin B-12) 2 tab PO QAM 09/10/22 10/05/22 History furosemide 20 mg tablet 20 mg PO QAM 09/10/22 10/05/22 History ibuprofen 200 mg tablet (Advil) 200 - 400 mg PO Q6H PRN Pain 09/10/22 10/05/22 History naproxen 500 mg tablet 500 mg PO BID PRN Pain 09/10/22 10/05/22 History Patient History Medical History (Updated 09/24/22 @ 12:35 by Deb Hope PA-C) Degenerative disc disease GERD (gastroesophageal reflux disease) controlled, stable per pt History of chronic back pain History of COVID-19 10/2021, " tested positive", not hosp; fever, SOB>resolved History of urinary incontinence "dribbles sometimes" HLD (hyperlipidemia) Hx of coronary artery disease NSTEMI post PCI to acute on chronic right PDA occlusion with single SHERMAN 06/2019--Residual 60-70% small distal circumflex stenosis, follows with [place] cardiology Hypertension controlled, stable per pt Morbid obesity Myocardial Infarction 06/27/2019>cardiac cath w/1 stent; f/u tri khan Surgical History History of arthroscopy left KNEE History of back surgery Lumbar discectomy 09/18/18 Lumbar decompression and fusion at [facility] by Dr Burnham History of cardiac cath >had [place]>x1 stent, resolut elisha; f/u tri khan History of colonoscopy History of hysterectomy History of tonsillectomy History of total knee replacement RT Family History Father Family history of diabetes mellitus Social History Smoking Status: Never smoker Tobacco Type: Cigarettes Cigarettes Per Day: 10-15; Second Hand Exposure: No; Do You Dip or Chew Tobacco: No; Tobacco Cessation Education Requested by Patient: No Hx Alcohol Use: Yes Alcohol type: beer Hx Substance Use: No Preferred Language: Kinyarwanda Communication Ability: Effective Fur Scraper Required: No Beliefs That Will Affect Care: None marital status: Current Living Situation: Spouse and Family Other Information That Helps Us Care for You: No Feels Safe at Home: Yes Safety Concerns: Feels Safe At This Time Assistive Devices: None Assistive Devices Comment: cane prn Review of Systems Review of Systems: Negative otherwise mentioned in HPI. Physical Exam Physical Exam: GENERAL: Alert and oriented x3. NAD, on 3L, Obese Class III. HEENT: No pallor, no icterus. Pupils equal, round and reactive to light. Oral mucosa moist. NECK: No JVD, no neck masses. HEART: S1 and S2 heard. Regular rate and rhythm. No murmur, no gallop. RESPIRATORY SYSTEM: Normal AP diameter. No accessory muscle use. No wheezing, no crackles. ABDOMEN: Soft, bowel sounds present, nontender, no distention. CENTRAL NERVOUS SYSTEM: No facial droop. Speech is clear. Obeys simple commands. Moves extremities. EXTREMITIES: No edema, no erythema seen. Lower back w/ clean dressing. OLINDA drain w/ mod sero sanguinous collection noted. Distal NV status nl x LE. SCDs on BLE. Results & Data ([facility]) Vital Signs (Past 12 Hours) Vital Signs Temp Pulse Pulse Resp BP BP Pulse Ox 10/05/22 21:05 67 20 160/85 H 95 10/05/22 20:35 36.4 C L 54 L 20 149/82 H 94 10/05/22 20:05 36.4 C L 51 L 16 161/77 H 90 10/05/22 19:45 36.4 C L 49 L 17 163/81 H 97 10/05/22 19:35 36.4 C L 51 L 14 151/95 H 96 10/05/22 19:55 36.4 C L 47 L 19 167/66 H 95 10/05/22 19:25 36.4 C L 48 L 14 163/71 H 95 10/05/22 19:05 55 L 13 143/85 H 98 10/05/22 18:55 71 19 153/90 H 95 10/05/22 19:15 36.4 C L 47 L 19 164/82 H 95 10/05/22 18:45 67 18 148/90 H 86 L 10/05/22 18:39 36.1 C L 69 12 184/87 H 88 L 10/05/22 14:59 37.2 C 57 L 20 166/87 H 93 O2 Del Method O2 Flow Rate 10/05/22 21:05 Nasal Cannula 3 10/05/22 20:35 Nasal Cannula 3 10/05/22 20:05 Nasal Cannula 3 10/05/22 19:45 Nasal Cannula 2 10/05/22 19:35 Nasal Cannula 2 10/05/22 19:55 Nasal Cannula 2 10/05/22 19:25 Nasal Cannula 2 10/05/22 19:05 Oxymask 13 10/05/22 18:55 Oxymask 13 10/05/22 19:15 Oxymask 6 10/05/22 18:45 Oxymask 13 10/05/22 18:39 Oxymask 13 10/05/22 14:59 Room Air
[2022-10-06] MEDS: LACTATED RINGER'S 1,000 ML IV SCH ×2 (00:44→07:30)
[2022-10-06] MEDS: CLINDAMYCIN/D5W 600 MG/50 ML BAG IV SCH ×2 (00:44→09:46)
[2022-10-06] MEDS: POLYETHYLENE (MIRALAX) 17 GM PACK PO SCH ×4 (06:23→21:55)
[2022-10-06 08:17] LABS: Hematocrit (blood only) 38.4 % (34.1-44.9); Hemoglobin 12.6 g/dl (12.0-16.0); Immature Granulocytes # (auto) 0.03 K/uL (0.00-0.02); Immature Granulocytes % (auto) 0.4 %; Lymphocytes % (auto) 13.1 %; Mean Corpuscular Hemoglobin 28.4 pg (25.0-34.0); Mean Corpuscular Hgb Conc 32.8 g/dL (32.0-36.0); Mean Corpuscular Volume 86.7 fL (80.0-100.0); Mean Platelet Volume 10.3 fL (9.4-12.3); Monocytes # (auto) 0.37 K/uL (0.24-0.82); Monocytes % (auto) 4.8 %; Neutrophils # (auto) 6.26 K/uL (1.4-6.5); Neutrophils % (auto) 81.7 %; Platelet Count 164 K/uL (130-400); RDW Coefficient of Variation 13.8 % (11.5-14.5); RDW Standard Deviation 43.7 fL (36.4-46.3); Red Blood Count 4.43 M/uL (3.93-5.22); White Blood Count 7.66 K/ul (4.8-10.8)
[2022-10-06 08:36] LABS: Calcium 8.6 mg/dl (8.5-10.1); Creatinine Clr Calc Pharmacy 89.1 ml/min; Est GFR (African American) 87.7 ml/min; Est GFR (Non-African American) 75.7 ml/min; Potassium 4.4 mmol/L (3.5-5.1)
[2022-10-06] MEDS: ATORVASTATIN 40 MG TAB PO SCH ×2 (09:36→09:45)
[2022-10-06] MEDS: FUROSEMIDE 20 MG TAB PO SCH (09:36)
[2022-10-06] MEDS: CYANOCOBALAMIN (B-12) 500 MCG TABLET PO SCH (09:36)
[2022-10-06] MEDS: CETIRIZINE HCL 10 MG TABLET PO SCH (09:36)
[2022-10-06] MEDS: carvediloL 6.25 MG TAB PO SCH ×2 (09:36→21:55)
[2022-10-06] MEDS: PANTOprazole 40 MG TAB PO SCH (09:37)
[2022-10-06] MEDS: dexAMETHasone 6 MG in SYRINGE 0 ML IV SCH (09:37)
[2022-10-06] MEDS: MULTIVITAMIN TAB PO SCH (09:37)
[2022-10-06] MEDS: lisinopril 40 MG TAB PO SCH (09:37)
[2022-10-06] MEDS: ASPIRIN 81 MG ECTAB PO SCH (09:37)
--- NOTE | 2022-10-06 11:30 | Orthopedic Progress Note ---
Date of Service October 06, 2022 Assessment & Plan (1) Neurogenic claudication due to lumbar spinal stenosis: Plan: At this time initiate physical therapy monitor OLNIDA output hopefully discharge home in next few days. Admission and Anticipated Discharge Date Admission Date: October 05, 2022 Subjective Patient is comfortable. Leg pain markedly improved. Physical Exam Physical Exam: Patient is comfortable. She is good strength testing. Results & Data ([facility]) Vital Signs (Past 12 Hours) Vital Signs Temp Pulse Pulse Resp BP Pulse Ox O2 Del Method 10/06/22 09:35 64 10/06/22 07:30 Nasal Cannula 10/06/22 07:20 36.4 C L 60 18 140/71 94 Nasal Cannula 10/06/22 02:28 36.9 C 65 20 142/77 H 95 Nasal Cannula O2 Flow Rate 10/06/22 09:35 10/06/22 07:30 3 10/06/22 07:20 3 10/06/22 02:28 3
--- NOTE | 2022-10-06 14:41 | Hospitalist Progress Note ---
Date of Service October 06, 2022 Assessment & Plan (1) Neurogenic claudication due to lumbar spinal stenosis: Plan Neurogenic claudication due to lumbar spinal stenosis Lumbar spine decompression and fusion by Dr. Burnham on 10/05/2022 Comfortable. Afebrile, saturating well in room air. Hemoglobin is 12.6 today; stable Plan; continue with incentive spirometer. Bowel regimen PT OT Remove Lewis Pain control SCDs in place. Hypertension Continue on Coreg 6.25, Lasix and lisinopril Hyperlipidemia Continue on Lipitor. CADcontinue on aspirin and Lipitor. DVT prophylaxis: SCDs Disposition: PT/OT, CM to assist with DC planning. Admission and Anticipated Discharge Date Admission Date: October 05, 2022 Subjective Patient seen and examined at bedside. Patient is sitting up on the bed; not in any distress. She reports passing gas; no bowel movement yet. Denies any fever, chills, chest pain or shortness of breath. Review of Systems Review of Systems: All systems reviewed & are unremarkable except as noted in Subjective Physical Exam Physical Exam: GENERAL: Alert and oriented x3. NAD, on 3L, Obese Class III. HEENT: No pallor, no icterus. Pupils equal, round and reactive to light. Oral mucosa moist. NECK: No JVD, no neck masses. HEART: S1 and S2 heard. Regular rate and rhythm. No murmur, no gallop. RESPIRATORY SYSTEM: Normal AP diameter. No accessory muscle use. No wheezing, no crackles. ABDOMEN: Soft, bowel sounds present, nontender, no distention. CENTRAL NERVOUS SYSTEM: No facial droop. Speech is clear. Obeys simple commands. Moves extremities. EXTREMITIES: No edema, no erythema seen. Lower back w/ clean dressing. OLINDA drain w/ mod sero sanguinous collection noted. Distal NV status nl x LE. SCDs on BLE. Results & Data Results & Data ([facility]) Vital Signs (Past 12 Hours) Vital Signs Temp Pulse Pulse Resp BP Pulse Ox O2 Del Method 10/06/22 12:57 36.7 C 57 L 18 108/70 92 Room Air 10/06/22 09:35 64 10/06/22 07:30 Nasal Cannula 10/06/22 07:20 36.4 C L 60 18 140/71 94 Nasal Cannula O2 Flow Rate 10/06/22 12:57 10/06/22 09:35 10/06/22 07:30 3 10/06/22 07:20 3 Laboratory Results Laboratory Results WBC 7.66 K/ul (4.8-10.8) 10/06/22 07:46 RBC 4.43 M/uL (3.93-5.22) 10/06/22 07:46 Hgb 12.6 g/dl (12.0-16.0) 10/06/22 07:46 Hct 38.4 % (34.1-44.9) 10/06/22 07:46 MCV 86.7 fL (80.0-100.0) 10/06/22 07:46 MCH 28.4 pg (25.0-34.0) 10/06/22 07:46 MCHC 32.8 g/dL (32.0-36.0) 10/06/22 07:46 RDW Std Deviation 43.7 fL (36.4-46.3) 10/06/22 07:46 RDW Coeff of Magan 13.8 % (11.5-14.5) 10/06/22 07:46 Plt Count 164 K/uL (130-400) 10/06/22 07:46 MPV 10.3 fL (9.4-12.3) 10/06/22 07:46 Immature Gran % (Auto) 0.4 % 10/06/22 07:46 Neut % (Auto) 81.7 % 10/06/22 07:46 Lymph % (Auto) 13.1 % 10/06/22 07:46 Hemphill % (Auto) 4.8 % 10/06/22 07:46 Eos % (Auto) 0.0 % 10/06/22 07:46 Baso % (Auto) 0.0 % 10/06/22 07:46 Neut # (Auto) 6.26 K/uL (1.4-6.5) 10/06/22 07:46 Lymph # (Auto) 1.00 K/uL (1.2-3.4) L 10/06/22 07:46 Hemphill # (Auto) 0.37 K/uL (0.24-0.82) 10/06/22 07:46 Eos # (Auto) 0.00 K/uL (0-0.50) 10/06/22 07:46 Baso # (Auto) 0.00 K/uL (0-0.2) 10/06/22 07:46 Immature Gran # (Auto) 0.03 K/uL (0.00-0.02) H 10/06/22 07:46 Sodium 140 mmol/L (136-145) 10/06/22 07:46 Potassium 4.4 mmol/L (3.5-5.1) 10/06/22 07:46 Chloride 107 mmol/L (98-107) 10/06/22 07:46 Carbon Dioxide 28 mmol/L (21-32) 10/06/22 07:46 Anion Gap 5 (3-11) 10/06/22 07:46 BUN 13 mg/dl (6-23) 10/06/22 07:46 Creatinine 0.81 mg/dl (0.6-1.2) 10/06/22 07:46 Est Cr Clr Drug Dosing 89.1 ml/min 10/06/22 07:46 Est GFR ( Amer) 87.7 ml/min 10/06/22 07:46 Est GFR (Non-Af Amer) 75.7 ml/min 10/06/22 07:46 BUN/Creatinine Ratio 16.0 (10-20) 10/06/22 07:46 Glucose 128 mg/dl (70-99(Fasting)) H 10/06/22 07:46 Calcium 8.6 mg/dl (8.5-10.1) 10/06/22 07:46 SARS-CoV-2, RNA, NAAT NEGATIVE (NEGATIVE) 10/05/22 14:47 Blood Type O Positive 10/05/22 15:01 Antibody Screen NEGATIVE 10/05/22 15:01 Crossmatch See Detail 10/05/22 15:01 Impressions Lumbar Spine X-Ray 10/05/22 00:00 FL lumbar spine 2-3V CLINICAL HISTORY: DECOMP L3-L5 FUSION COMPARISON STUDY: Lumbar spine CT July 08, 2022. FLUOROSCOPY TIME: 10 seconds. FLUOROSCOPIC IMAGES: 2 FINDINGS: Interval L3-L4 discectomy with interbody spacer placement is noted. Previous L4-L5 discectomy with interbody spacer placement is noted. Posterior decompression is noted with bilateral pedicle screws at the L3, L4 and L5 levels. IMPRESSION: Fluoroscopy provided during L3-L4 discectomy and L3-L5 posterior decompression and bilateral pedicle screw fusion. ACT 112: Negative or not required by law. Electronically signed by: Jeronimo Giraldo M.D. 10/05/2022 6:54 PM
[2022-10-06] MEDS: DOCUSATE SODIUM/SENNA 50/8.6MG TAB PO SCH (21:46)
[2022-10-06] MEDS: oxyCODONE HCL IR 5 MG TAB (IMMEDIATE RELEASE) PO PRN (21:48)
[2022-10-07] MEDS: POLYETHYLENE (MIRALAX) 17 GM PACK PO SCH ×4 (05:57→22:48)
[2022-10-07] MEDS: oxyCODONE HCL IR 5 MG TAB (IMMEDIATE RELEASE) PO PRN ×2 (08:41→17:28)
[2022-10-07] MEDS: CYANOCOBALAMIN (B-12) 500 MCG TABLET PO SCH (08:42)
--- NOTE | 2022-10-07 08:42 | Orthopedic Progress Note ---
Date of Service October 07, 2022 Assessment & Plan (1) Neurogenic claudication due to lumbar spinal stenosis: Plan: This time continue physical therapy monitor OLINDA output anticipate discharge home tomorrow. Admission and Anticipated Discharge Date Admission Date: October 05, 2022 Subjective Back pain controlled leg pain markedly improved Physical Exam Physical Exam: Patient is in the chair at the bedside. Skin strength testing. Results & Data ([facility]) Vital Signs (Past 12 Hours) Vital Signs Temp Pulse Resp BP Pulse Ox O2 Del Method 10/06/22 21:15 36.9 C 65 20 156/76 H 94 Room Air 10/06/22 21:51 36.9 C 63 20 157/73 H 93 Room Air
[2022-10-07] MEDS: MULTIVITAMIN TAB PO SCH (08:43)
[2022-10-07] MEDS: dexAMETHasone 6 MG in SYRINGE 0 ML IV SCH (08:43)
[2022-10-07] MEDS: PANTOprazole 40 MG TAB PO SCH (08:43)
[2022-10-07] MEDS: lisinopril 40 MG TAB PO SCH (08:43)
[2022-10-07] MEDS: ASPIRIN 81 MG ECTAB PO SCH (08:43)
[2022-10-07] MEDS: ATORVASTATIN 40 MG TAB PO SCH (08:43)
[2022-10-07] MEDS: CETIRIZINE HCL 10 MG TABLET PO SCH (08:43)
[2022-10-07] MEDS: FUROSEMIDE 20 MG TAB PO SCH (08:43)
[2022-10-07] MEDS: carvediloL 6.25 MG TAB PO SCH ×2 (10:49→21:15)
--- NOTE | 2022-10-07 14:21 | Hospitalist Progress Note ---
Date of Service October 07, 2022 Assessment & Plan (1) Neurogenic claudication due to lumbar spinal stenosis: Plan Neurogenic claudication due to lumbar spinal stenosis Lumbar spine decompression and fusion by Dr. Burnham on 10/05/2022 Comfortable. Afebrile, saturating well in room air. Hemoglobin post-op 12.6 stable Plan; continue with incentive spirometer. Bowel regimen PT OT Pain control SCDs in place. Hypertension Continue on Coreg 6.25, Lasix and lisinopril Hyperlipidemia Continue on Lipitor. CADcontinue on aspirin and Lipitor. DVT prophylaxis: SCDs Disposition: PT/OT, CM to assist with DC planning. Admission and Anticipated Discharge Date Admission Date: October 05, 2022 Subjective Patient seen and examined at bedside. She is comfortable; not in any distress. She is working well with physical therapy. Is passing gas; no bowel movement yet. Review of Systems Review of Systems: All systems reviewed & are unremarkable except as noted in Subjective Physical Exam Physical Exam: GENERAL: Alert and oriented x3. NAD, on 3L, Obese Class III. HEENT: No pallor, no icterus. Pupils equal, round and reactive to light. Oral mucosa moist. NECK: No JVD, no neck masses. HEART: S1 and S2 heard. Regular rate and rhythm. No murmur, no gallop. RESPIRATORY SYSTEM: Normal AP diameter. No accessory muscle use. No wheezing, no crackles. ABDOMEN: Soft, bowel sounds present, nontender, no distention. CENTRAL NERVOUS SYSTEM: No facial droop. Speech is clear. Obeys simple commands. Moves extremities. EXTREMITIES: No edema, no erythema seen. Lower back w/ clean dressing. . SCDs on BLE. Results & Data Results & Data ([facility]) Vital Signs (Past 12 Hours) Vital Signs Temp Pulse Resp BP Pulse Ox O2 Del Method 10/07/22 08:00 37.1 C 58 L 16 123/70 90 Room Air Laboratory Results Laboratory Results WBC 7.66 K/ul (4.8-10.8) 10/06/22 07:46 RBC 4.43 M/uL (3.93-5.22) 10/06/22 07:46 Hgb 12.6 g/dl (12.0-16.0) 10/06/22 07:46 Hct 38.4 % (34.1-44.9) 10/06/22 07:46 MCV 86.7 fL (80.0-100.0) 10/06/22 07:46 MCH 28.4 pg (25.0-34.0) 10/06/22 07:46 MCHC 32.8 g/dL (32.0-36.0) 10/06/22 07:46 RDW Std Deviation 43.7 fL (36.4-46.3) 10/06/22 07:46 RDW Coeff of Magan 13.8 % (11.5-14.5) 10/06/22 07:46 Plt Count 164 K/uL (130-400) 10/06/22 07:46 MPV 10.3 fL (9.4-12.3) 10/06/22 07:46 Immature Gran % (Auto) 0.4 % 10/06/22 07:46 Neut % (Auto) 81.7 % 10/06/22 07:46 Lymph % (Auto) 13.1 % 10/06/22 07:46 Faulk % (Auto) 4.8 % 10/06/22 07:46 Eos % (Auto) 0.0 % 10/06/22 07:46 Baso % (Auto) 0.0 % 10/06/22 07:46 Neut # (Auto) 6.26 K/uL (1.4-6.5) 10/06/22 07:46 Lymph # (Auto) 1.00 K/uL (1.2-3.4) L 10/06/22 07:46 Faulk # (Auto) 0.37 K/uL (0.24-0.82) 10/06/22 07:46 Eos # (Auto) 0.00 K/uL (0-0.50) 10/06/22 07:46 Baso # (Auto) 0.00 K/uL (0-0.2) 10/06/22 07:46 Immature Gran # (Auto) 0.03 K/uL (0.00-0.02) H 10/06/22 07:46 Sodium 140 mmol/L (136-145) 10/06/22 07:46 Potassium 4.4 mmol/L (3.5-5.1) 10/06/22 07:46 Chloride 107 mmol/L (98-107) 10/06/22 07:46 Carbon Dioxide 28 mmol/L (21-32) 10/06/22 07:46 Anion Gap 5 (3-11) 10/06/22 07:46 BUN 13 mg/dl (6-23) 10/06/22 07:46 Creatinine 0.81 mg/dl (0.6-1.2) 10/06/22 07:46 Est Cr Clr Drug Dosing 89.1 ml/min 10/06/22 07:46 Est GFR ( Amer) 87.7 ml/min 10/06/22 07:46 Est GFR (Non-Af Amer) 75.7 ml/min 10/06/22 07:46 BUN/Creatinine Ratio 16.0 (10-20) 10/06/22 07:46 Glucose 128 mg/dl (70-99(Fasting)) H 10/06/22 07:46 Calcium 8.6 mg/dl (8.5-10.1) 10/06/22 07:46 SARS-CoV-2, RNA, NAAT NEGATIVE (NEGATIVE) 10/05/22 14:47 Blood Type O Positive 10/05/22 15:01 Antibody Screen NEGATIVE 10/05/22 15:01 Crossmatch See Detail 10/05/22 15:01 Impressions Lumbar Spine X-Ray 10/05/22 00:00 FL lumbar spine 2-3V CLINICAL HISTORY: DECOMP L3-L5 FUSION COMPARISON STUDY: Lumbar spine CT July 08, 2022. FLUOROSCOPY TIME: 10 seconds. FLUOROSCOPIC IMAGES: 2 FINDINGS: Interval L3-L4 discectomy with interbody spacer placement is noted. Previous L4-L5 discectomy with interbody spacer placement is noted. Posterior decompression is noted with bilateral pedicle screws at the L3, L4 and L5 levels. IMPRESSION: Fluoroscopy provided during L3-L4 discectomy and L3-L5 posterior decompression and bilateral pedicle screw fusion. ACT 112: Negative or not required by law. Electronically signed by: Jeronimo Giraldo M.D. 10/05/2022 6:54 PM
[2022-10-07] MEDS: DOCUSATE SODIUM/SENNA 50/8.6MG TAB PO SCH (21:15)
[2022-10-08] MEDS: oxyCODONE HCL IR 5 MG TAB (IMMEDIATE RELEASE) PO PRN (00:41)
[2022-10-08] MEDS: POLYETHYLENE (MIRALAX) 17 GM PACK PO SCH (05:52)
[2022-10-08] MEDS: carvediloL 6.25 MG TAB PO SCH (07:43)
[2022-10-08] MEDS: ATORVASTATIN 40 MG TAB PO SCH (07:44)
[2022-10-08] MEDS: CYANOCOBALAMIN (B-12) 500 MCG TABLET PO SCH (07:44)
[2022-10-08] MEDS: FUROSEMIDE 20 MG TAB PO SCH (07:44)
[2022-10-08] MEDS: MULTIVITAMIN TAB PO SCH (07:45)
[2022-10-08] MEDS: dexAMETHasone 6 MG in SYRINGE 0 ML IV SCH (07:45)
[2022-10-08] MEDS: ASPIRIN 81 MG ECTAB PO SCH (07:45)
[2022-10-08] MEDS: lisinopril 40 MG TAB PO SCH (07:45)
[2022-10-08] MEDS: PANTOprazole 40 MG TAB PO SCH (07:45)
[2022-10-08] MEDS: CETIRIZINE HCL 10 MG TABLET PO SCH (07:50)
--- NOTE | 2022-10-08 09:35 | Discharge Summary ---
Date of Service October 08, 2022 Admission HPI Per Admitting Provider This is a 66-year-old female known to me the presents with chronic persistent back and leg pain. Failing extensive course of nonoperative care is here for surgical invention. Principal Diagnosis Lumbar spinal stenosis with neurogenic claudication Discharge Data Allergies Allergy/AdvReac Type Severity Reaction Status Date / Time potassium chloride AdvReac Intermediate diarrhea Verified 10/05/22 14:55 cefuroxime Allergy Intermediate nausea and Uncoded 10/05/22 14:55 vomiting shrimp Allergy Unknown Uncoded 10/05/22 14:55 azithromycin Allergy diarrhea Uncoded 10/05/22 14:55 vioxx Allergy edema Uncoded 10/05/22 14:55 ciprofloxacin AdvReac Unknown Uncoded 10/05/22 14:55 Consultations 10/05/22 20:15 Consult Hospitalist Routine Procedures Performed Operation Date: 10/05/22 09:35 Actual Procedures p L4-L5 Decompression and L3-L5 Fusion, Spinal Cord Monitoring(Not Applicable) - Juanito Burnham DO s L4-L5 Hardware Removal,(Not Applicable) - Juanito Burnham DO Ordered Studies 10/05/22 FL lumbar spine 2-3V Routine Hospital Course (1) Neurogenic claudication due to lumbar spinal stenosis: Patient with lumbar decompression fusion tolerated as well as taken to orthopedic for postoperative. Postoperative day 1 she was up and ambulating progressed to postop day #2 on postop day 3 she is ambulating halls OLINDA drain decreased improved. Excellent strength testing. Pain well controlled. Separately discharged home. Total Time Total Time Spent Total Time Spent (In Minutes): 20 minutes Discharge Plan Discharge Items Patient Disposition: Home - Self-Care Reason For Visit: POSTOP Discharge Diagnosis: Lumbar spinal stenosis with neurogenic claudication Activity: As commented below Non-emergency contact: Primary Care Provider Call non-emergency contact if: you have any medication questions Follow-up/Referrals: Rico Tidwell MD [Primary Care Provider] - Diet: Regular Addtl Attending Provider Instructions: ACTIVITY RECOMMENDATIONS: SELF CARE INSTRUCTIONS AFTER THORACIC/LUMBAR FUSIONS 1. You may walk to your tolerance. It is good exercise for your legs and back. Expect some back and intermittent leg aches and pains. 2. You may perform "counter-top" level activities (make a sandwich, michelle with a project, etc.). 3. No bending or lifting of more than 10 pounds or back twisting of any nature (roll like a log when turning in bed). 4. You may ride in a car for 20-30 minutes at a time. No driving until after your first visit with your doctor. 5. Frequent changes of position and restricting sitting to 30 minutes at a time will help limit the amount of back spasms and stiffness you may experience. 6. You may discontinue the use of ambulatory aids (cane, crutches, etc.) once your strength and confidence allow. 7. You may hedge fund principal the shower and let water strike your incision when you arrive home at least once daily. Do not take a tub bath, sit in a hot tub or go into a swimming pool until after your first recheck in the office. SPECIAL CARE INSTRUCTIONS: VERY IMPORTANT TO READ AND REVIEW A. Your surgical incision has been closed with a cosmetic suture under the skin that will dissolve in about 6 weeks. In 14 days, you can use a pair of clean scissors and cut the suture that is left outside of the skin at the ends of your incision. 1. The small skin tapes can be removed 7 days after surgery if they have not fallen off by that point. 2. You may keep the wound open to air as much as possible to promote healing after post-op day number 5 unless told otherwise by your doctor. 3. If you think the wound looks like it is becoming infected (redness or worsening drainage) and/or you are experiencing fever, chill or worsening back pain and muscle spasms, contact the office so that we may evaluate you as soon as possible. B. Complications are uncommon, but please contact us if you have any signs or symptoms of: 1. wound infection (fever higher than 102.5 degrees F, redness, separation of wound, drainage, or increasing pain from the incision) 2. blood clots in legs (pain, swelling, redness and warmth in legs) 3. urinary tract infection (fever higher than 102.5 degrees F, burning upon urination or increased frequency of urination) 4. nerve problems (inability to walk on your toes or heels, numbness, loss of bowel or bladder control) 5. any other symptoms that concern you C. Please call the office at if you have any concerns or questions about your operation or recovery. D. No smoking! Smoking drastically decreases the chance of a solid fusion. E. Do not take any anti-inflammatory medications (Indocin, Advil, Motrin, Aspirin, Naprosyn, etc.) as these may inhibit the chance of a solid fusion. Tylenol is okay to take for pain. MANAGING PAIN AFTER SPINAL SURGERY 1. Narcotic medication is intended for short-term use and will be provided for surgical pain. Surgical pain usually lasts for a period of 4-6 weeks. Narcotic medication includes Percocet, Vicodin, Darvocet, Tylenol #3 or Lortab. 2. Longer-term pain is more appropriately treated with non-narcotic medication such as Tylenol ES. 3. Muscle spasm is not appropriately treated with narcotics. Muscle relaxers such as Soma, Flexeril or Skelaxin can be used along with Tylenol ES. 4. Remember that we all live with some "aches and pains". This is not unusual or uncommon after an injury or as we get older. a. Back pain is expected and may include muscle spasms for 4 to 6 weeks after surgery. The pain should gradually improve. If the pain worsens for no apparent reason, please contact the office. b. Intermittent leg pain may also be experienced and should not be concerned about unless it worsens for no apparent reason. If so, please contact the office. 5. We will provide appropriate medication within the normal guidelines of their prescribed use. We will also be very cautious and aware of potential abuse and extended duration of patients' medication needs. a. Pain medications are for your comfort and to assist with sleep and rest so that the tissue can heal. They are not provided in order to return to normal activity and should not be used through the day. To do so or worsening pain at night can result from ongoing tissue damage and development of tolerance to the prescribed medicine. 6. Please allow 2-3 days to process refills. Prescriptions will not be mailed but must be picked up at the office. FOLLOW UP VISIT: Keep your scheduled follow-up appointment. Any questions, please call the office at . Pending Studies at Discharge: No Stand-Alone Forms: [employer], Smoking Cessation Medications and DC Order Prescriptions: New tramadol 50 mg tablet 50 mg PO Q6H PRN (Reason: pain, moderate) Qty: 30 0RF oxycodone 5 mg tablet 5 mg PO Q6H PRN (Reason: pain, severe) Qty: 30 0RF Continued pantoprazole 40 mg tablet,delayed release (DR/EC) 40 mg PO QAM Qty: 90 3RF lisinopril [Zestril] 40 mg tablet 40 mg PO QAM Qty: 90 3RF carvedilol [Coreg] 6.25 mg tablet 6.25 mg PO BID Qty: 180 3RF Rx Instructions: must administer with a meal/food aspirin 81 mg tablet,delayed release (DR/EC) 81 mg PO QAM multivitamin Tablet 1 tab PO QAM nitroglycerin [Nitrostat] 0.4 mg Tablet, Sublingual 0.4 mg sublingual PRN PRN (Reason: chest pain) Qty: 30 0RF cetirizine 10 mg Tablet 10 mg PO QAM ibuprofen [Advil] 200 mg Tablet 200 - 400 mg PO Q6H PRN (Reason: Pain) naproxen 500 mg Tablet 500 mg PO BID PRN (Reason: Pain) cyanocobalamin (vitamin B-12) Tablet,Chewable 2 tab PO QAM atorvastatin 80 mg tablet 80 mg PO QAM furosemide 20 mg tablet 20 mg PO QAM Discharge Orders: Discharge Order (Routine); Ordered 10/08/22 Ordered By: Juanito Obregon/Other Patient Handouts: Preventing Falls in the Home Admission Data Admit Date/Time: 10/05/22 18:15 Attending Provider: Juanito Burnham Admit Provider: Juanito Burnham Primary Care Provider: Rico Tidwell Other Providers: Yesi Sweeney ; Jean Davis Other Interventions: Discharge Summary Assessment (RN) Last Done: 10/08/22 09:23
== END 2022-10-08 10:19 | disposition home or self-care (01) | DRG 454 ==
LOC: ASU 14:24 → 3E 18:15